=== PATIENT | female | born 1965 | race Hispanic/Latino ===

== ENCOUNTER 2017-09-16 10:00 | Outpatient (CLI) | payer BC | END 2017-09-16 10:01 | disposition home or self-care (01) | LOC: BICRAD 10:00 | PROVIDERS: ATTEND Internal Medicine | DX: R05 Cough (principal); R50.9 Fever, unspecified; R07.0 Pain in throat | CPT/HCPCS: 71020; 87081; 87430 ==

== ENCOUNTER 2018-04-12 04:03 | Inpatient (IN) | payer BC ==
[2018-04-12] MEDS ORDERED: Acetaminophen 500 MG TAB ONE (04:40)
[2018-04-12] MEDS ORDERED: Ondansetron HCl/PF 4 MG/2 ML Vial ONE (04:45)
[2018-04-12] MEDS ORDERED: Piperacillin/Tazobactam 3.375 GM VIAL ONE (04:48)
[2018-04-12 05:32] LABS: CKMB 0.5 ng/mL (0-6.6); Troponin I 0.106 ng/mL (< 0.028)
[2018-04-12 05:36] LABS: ALT (SGPT) 78 U/L (8-55); AST (SGOT) 45 U/L (5-34); Albumin 4.1 g/dL (3.5-5.0); Alkaline Phosphatase 222 U/L (40-150); Anion Gap 17 mmol/L (10-20); BUN (Urea Nitrogen) 20 mg/dL (9.8-20.1); Calc. Creatinine Clearance 0 mL/min (70-130); Calcium 9.4 mg/dL (7.8-10.44); Carbon Dioxide 25 mmol/L (22-29); Chloride 102 mmol/L (98-107); Estimated GFR-MDRD 56; Globulin 2.6 g/dL (2.4-3.5); Glucose 143 mg/dL (70-105); Potassium 3.2 mmol/L (3.5-5.1); Protein, Total 6.7 g/dL (6.0-8.3); Sodium 141 mmol/L (136-145)
[2018-04-12 05:52] LABS: Hemoglobin 13.8 g/dL (12.0-16.0); Mean Corpuscular HGB CONC 31.5 g/dL (32.0-36.0); Mean Corpuscular Hemoglobin 28.8 pg (27.0-31.0); Mean Corpuscular Volume 91.5 fL (78.0-98.0); Mean Platelet Volume 8.8 fL (7.4-10.4); Platelet Count 194 thou/uL (130-400); RBC Distribution Width 13.4 % (11.5-14.5); White Blood Cell (WBC) Count 3.4 thou/uL (4.8-10.8)
[2018-04-12] MEDS ORDERED: Norepinephrine 8 MG/0.9% NS 250 ML ONE (06:18)
[2018-04-12 06:23] LABS: Band 1 % (5-11); Eosinophils 6 % (0-10); Lymphocytes 51 % (21-51); MDiff Complete? YES; Monocytes 14 % (0-10); Neutrophil 28 % (42-75)
[2018-04-12 07:28] LABS: Bilirubin Negative (Negative); Blood, Urine Negative (Negative); Clarity CLEAR (Clear); Glucose, Urine (Dipstick) Negative (Negative); Leukocyte Negative (Negative); Nitrite Negative (Negative); Protein, Urine (Dipstick) Negative (Neg-Trace); Specific Gravity, Urine 1.008 (1.002-1.036); Urobilinogen 0.2 mg/dL (0.2-1.0); pH, Urine 5.5 (5.0-9.0)
--- NOTE | 2018-04-12 07:39 | CT ---
CT BRAIN WITHOUT CONTRAST: Date: 04/12/18 HISTORY: Headache. Mental status change. COMPARISON: None. FINDINGS: No acute hemorrhage or infarct. No midline shift or mass effect. Ventricular size and extra-axial CSF spaces are normal. Basal ganglia, not definitively acute. Calvarium is intact. Mild mucosal thickening of the ethmoids. Mastoids are clear. IMPRESSION: Subtle hypodensity of the right basal ganglia, not definitively acute. If patient is exhibiting signs and symptoms of acute stroke, MRI may be beneficial. POS: [facility]
--- NOTE | 2018-04-12 08:00 | CT ---
CT CHEST WITH CONTRAST CT ABDOMEN WITH CONTRAST CT PELVIS WITH CONTRAST: Date: 04/12/18 HISTORY: Sepsis. COMPARISON: PET CT from 10/20/16. FINDINGS: Small right paratracheal lymph node measures 5.0 mm, relatively similar. No pericardial effusion. Thyroid appears unremarkable. Aortic contour is nonaneurysmal. There is mild interstitial thickening throughout the lungs, worse in the lung bases. Mild atelectasis in the lung bases. No pneumothorax. No significant effusion. No displaced rib fracture. The sternum and manubrium are intact. Liver is unremarkable. Mild distention of the gallbladder. There is submucosal edema of the ascending colon with mucosal hyperenhancement. There is also mild mu cosal hyperenhancement of the sigmoid colon. Lack of normal haustrations of the descending and sigmoid colon, as well as the distal portion of the transverse colon. The superior mesenteric artery is patent. The inferior mesenteric artery is patent . Aortoiliac contour is nonaneurysmal. No hydronephrosis. Normal renal enhancement. Adrenal glands unremarkable. No adenopathy in the abdomen or pelvis. 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 IMPRESSION: 1. Mild interstitial thickening throughout the lungs suggesting edema. 2. Similar appearance of the mediastinal small lymph nodes. 3. Colitis of nearly the entire colon. There is abnormal submucosal edema throughout the ascending a nd proximal one half of the transverse colon with lack of normal haustration of the distal one half t ransverse as well as descending and sigmoid colons. The distal transverse, as well as descending and sigmoid colon is in the region of the inferior mesenteric artery, although is patent. It is possible that there is a superimposition of hypotension upon colitis if patient is septic. No thrombosis of th e inferior mesenteric artery. 4. Normal appendix. POS: [facility]
[2018-04-12] MEDS ORDERED: Sodium Chloride 0.9% 1,000 ML IV SCH ×3 (09:00→12:30)
[2018-04-12] MEDS ORDERED: Acetaminophen 325 MG TAB PO PRN (09:22)
[2018-04-12 09:40] LABS: Lactic Acid 1.7 mmol/L (0.5-2.2)
--- NOTE | 2018-04-12 09:42 | RAD ---
FRONTAL VIEW CHEST: Comparison: None. Indication: Sepsis/hypoxia. FINDINGS: There is mild elevation of the right hemidiaphragm. Cardiac silhouette is accentuated. No lobar conso lidation, effusions, or pneumothorax. IMPRESSION: No focal consolidation. POS: [facility]
[2018-04-12] MEDS ORDERED: Potassium Chloride 40 MEQ in Premix Bag 1 BAG IVPB SCH (10:00)
[2018-04-12] MEDS ORDERED: DOPamine 400 MG/D5W 250 ML 250 ML ONE (10:26)
[2018-04-12] MEDS: Ondansetron HCl/PF 4 MG/2 ML Vial IVP PRN (10:49)
--- NOTE | 2018-04-12 10:55 | RAD ---
FRONTAL VIEW CHEST: Date: 04/12/18 CLINICAL HISTORY: Central line placement evaluation. FINDINGS: There is a right internal jugulovenous catheter with tip overlying the SVC. Cardiac silhouette and pu lmonary vasculature are prominent. There is a patchy left basilar density indicating pleural fluid wi th adjacent consolidation. Mild bilateral interstitial opacities likely represent edema. There is no discrete pneumothorax. IMPRESSION: 1. Right internal jugulovenous catheter is in place. There is no significant postprocedure pneumotho rax. 2. Findings which likely relate to fluid overload, possibly from CHF. Correlate clinically. 3. Left pleural effusion with adjacent left basilar consolidation. Recommend continued imaging follo w-up. POS: [facility]
[2018-04-12] MEDS ORDERED: DOPamine 400 MG/D5W 250 ML 250 ML IVPB SCH (11:00)
[2018-04-12] MEDS ORDERED: Piperacillin/Tazobactam 3.375 GM in Sodium Chloride 0.9% 100 ML IVPB SCH (12:00)
[2018-04-12] MEDS: Vasopressin 40 UNIT, Admixture Fee 1 EACH in Sodium Chloride 0.9% 100 ML IV SCH ×2 (12:00→23:20)
[2018-04-12] MEDS ORDERED: metroNIDAZOLE 500 MG in Premix Bag 1 BAG IVPB SCH (12:00)
[2018-04-12] MEDS: Norepinephrine 8 MG/0.9% NS 250 ML IVPB SCH ×2 (12:38→19:56)
[2018-04-12] MEDS ORDERED: VANCOMYCIN IVPB PRN (13:06)
[2018-04-12] MEDS: Sodium Chloride 0.9% 1,000 ML IV SCH ×3 (14:03→19:56)
[2018-04-12] MEDS ORDERED: ISOVUE-370 76%-LOCM 1 ML ONE (14:47)
--- NOTE | 2018-04-12 15:40 | HP ---
CHIEF COMPLAINT: Abdominal pain. HISTORY OF PRESENT ILLNESS: This patient is a 53-year-old female with a history of mantle cell lymph lonnie who was previously treated and is on continued suppressive therapy with Imbruvica 4 capsules per day. 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 The patient sta chica that she was in her usual state of good health two days ago; however, yesterday she started exper iencing some generalized fatigue and some generalized abdominal discomfort. States she just did not feel like herself. She denied any fevers or chills. Had some difficulty sleeping. She subsequently tried to sleep and got up about 2:00 in the morning and was not feeling well. She called her daught er and her daughter ultimately brought her to the hospital. She denies having had any diarrhea. She does have a history primarily of some constipation and has used laxatives for that. She has had be e diarrhea since she has been here in the hospital. Emergency Department notes are not placed yet; h owever, the patient was significantly hypotensive in the emergency department, appeared to be septic. She has received 6 liters of fluid, vancomycin and Zosyn. PAST MEDICAL HISTORY: Notable for the lymphoma and suppressive therapy. She also has a history of h ypothyroidism. PAST SURGICAL HISTORY: Patient had some what she describes as cyst removed from her pelvic area. Sh e states that is when her diagnosis of lymphoma was made. FAMILY HISTORY: Mother has diabetes. Father has hypertension. SOCIAL HISTORY: The patient is a nonsmoker, nondrinker, nondrug user. She is . She states h er would be her surrogate decision maker. She is a DNR at her request. REVIEW OF SYSTEMS: Negative except for those things mentioned in the history of present illness, thi s is a 10-system review. PHYSICAL EXAMINATION: VITAL SIGNS: Temperature was 100, BP 92/43, respiratory rate 29, O2 saturation 95%, heart rate 120. Note the patient is currently on 18 mcg of Levophed. GENERAL APPEARANCE: The patient is a bit somnolent, but awake and alert, conversant, and appropriate . HEENT: PERRL. No OP lesions. She has a left medial limbus pterygium. NECK: Supple and symmetric with a right central line in place. HEART: Has regular rate and rhythm. She was tachycardic. No murmurs, gallops or rubs. CHEST: Lungs are clear to auscultation bilaterally with good chest wall expansion interexchange. ABDOMEN: Soft, nontender, nondistended, positive bowel sounds. No masses, no organomegaly. EXTREMITIES: Warm and dry. IMAGING DATA: CT scan of the chest, abdomen, and pelvis reveals some mild interstitial thickening th roughout the lungs suggestive of edema and stable mediastinal small lymph nodes. There is colitis of nearly the entire colon with submucosal edema. There is an abnormal submucosal edema throughout the ascending and proximal one half of the transverse colon with lack of normal lacerations of the dista l one half transverse as well as the descending and sigmoid colon at the distal transverse as well as the ascending and sigmoid colon. This region of the inferior mesenteric artery, although it is eastman nt. The radiologist notes that there is superimposition of hypotension and pancolitis in a patient w ith sepsis. No evidence of thrombus in the inferior mesenteric artery. Normal appendix. CT of the brain shows subtle hypodensity of the right basal ganglia, not definitively acute. Chest x-ray by my read appears normal. LABORATORY DATA: White count is 3.4, hemoglobin 13.8, she has 28 neutrophils, 1% bands. Sodium 141, potassium 3.2, chloride 102, CO2 is 25, BUN 20, creatinine is 1.02, glucose 143, lactic acid 2.5, T 45, ALT 78, alkaline phosphatase 222, troponins 0.106. Urinalysis is negative. IMPRESSION AND PLAN: 1. Sepsis. This appears to be secondary to diffuse colitis. The patient has received 6 liters of f luid and remains on pressors. Titrating the pressors to keep map at a target of 60 or greater. Disc ussed case with Dr. Luciano, Pulmonary Critical Care. 2. Colitis. The patient is on vancomycin and Zosyn. We will add metronidazole. The patient does h ave a history of CMV colitis. We will consult ID given that history to determine if we need to cover with viral or antiviral medications as well. Pending now the patient response may need to get surge ry involved as well. 3. History of lymphoma. Patient is on suppressive medications with Imbruvica. We will hold that fo r the time being. We will consult Dr. Cleaning who follows her locally to determine if that is someth ing that should be continued or held through the midst of this sepsis picture. 4. History of hypothyroidism. We will continue with her usual thyroid medications. 5. Elevated liver enzymes. This is likely secondary to some hypotension of the liver. 6. Immunosuppression. The patient's white count is 3.2. She does not appear to be neutropenic, but is suppressed with the Imbruvica. 7. Elevated troponin. This is likely secondary to demand ischemia from pressors and hypotension. 8. Hypokalemia. We will give IV repletion.
[2018-04-12] MEDS ORDERED: Vancomycin HCl 1 GM in Premix Bag 1 BAG IVPB SCH (17:00)
[2018-04-12] MEDS: Piperacillin/Tazobactam 3.375 GM in Sodium Chloride 0.9% 100 ML IVPB SCH ×2 (17:38→23:07)
[2018-04-12] MEDS: SODIUM CHLORIDE 0.9% IVPB SCH (18:41)
[2018-04-12] MEDS: GANCICLOVIR SODIUM IVPB SCH (18:41)
[2018-04-12] MEDS ORDERED: Ganciclovir Sodium 500 MG/10 ML VIAL IVPB SCH (21:00)
[2018-04-12] MEDS: Famotidine/PF 20 mg/2ml Vial SLOW IVP SCH (21:21)
--- NOTE | 2018-04-12 21:42 | CON ---
DATE OF CONSULTATION: 04/12/2018 REASON FOR CONSULTATION: Lymphoma. HISTORY OF PRESENT ILLNESS: Ms. Cadena is a 53-year-old female with a history of mantle cell lympho ma. She has been on Imbruvica for maintenance since 12/2016. She has been in remission since that t shawanda. She has struggled with cramping and night sweats from the medication, but otherwise has done we ll. She presented to the emergency room early this morning for altered mental status. She had a hea dache. In the emergency room, she was tachycardic and hypertensive. She had a fever of 102.4. She had aggressive volume resuscitation, requiring pressors. She was admitted for septic shock and place d in the ICU. She currently remains on vasopressin, dopamine and Levophed. Patient denies any compl aints. Patient was seen in the ICU, both by Dr. Cleaning and myself. PAST MEDICAL HISTORY: 1. Mantle cell lymphoma in remission since 2016. 2. Hypothyroidism. 3. History of CMV colitis in 10/2016. PAST SURGICAL HISTORY: Ovarian cyst removal. ALLERGIES: No known drug allergies. HOME MEDICATIONS: Synthroid 75 mcg daily. FAMILY HISTORY: Mother had ovarian cancer. SOCIAL HISTORY: , has 3 children, lives with her spouse. No alcohol, tobacco or illicit drug use. REVIEW OF SYSTEMS: Constitutional: Positive for fever, chills, no night sweats. Eyes: No blurred or double vision. ENT: No pain, hoarseness, sore throat, or dysphagia. Cardiovascular: No chest p ain or palpitations. Positive for syncope. Respiratory: Positive for shortness of breath. Gastroi ntestinal: No nausea, vomiting, diarrhea, constipation or abdominal pain. Genitourinary: No dysuri a or hematuria. Musculoskeletal: Positive for joint and back pain. Skin: No rash or pruritus. He matologic: No bruising, bleeding or clotting. Neurologic: Positive for weakness, no headache, numb ness, tingling or seizure activity. Psychiatric: No anxiety or depression. PHYSICAL EXAMINATION: VITAL SIGNS: Temperature is 99.5, heart rate 108, respiratory rate is 25, BP is 86/53. GENERAL: This is a well-developed, well-nourished female in no acute distress. HEENT: Normocephalic, atraumatic. Pupils equal and reactive to light. NECK: Supple. HEART: Regular rate and rhythm. LUNGS: Diminished. ABDOMEN: Soft, nontender, bowel sounds are positive. EXTREMITIES: No clubbing, cyanosis or edema. SKIN: No rash. HEMATOLOGIC: No petechia or purpura. NEUROLOGICAL: Nonfocal. PSYCHIATRIC: The patient is alert and oriented and answers questions appropriately. PERTINENT LABORATORY AND X-RAYS: Current WBCs 3.4, hemoglobin 13.8, hematocrit 43.9, platelet count 194,000, 28% neutrophils, 1% bands, 51% lymphocytes, 14% monocytes. Sodium is 141, potassium 3.2, ch loride 102, CO2 is 25, BUN is 20, creatinine 1.02. Lactic acid is 1.7, calcium 9.4, total bilirubin is 1.0, AST is 45, ALT 78, alkaline phosphatase is 222. Troponin is 0.106, serum total protein is 6. 7, albumin 4.1, globulin 2.6. Urine was negative for bacteria. CT of the upper chest, abdomen, and pelvis showed pulmonary edema and colitis. ASSESSMENT: Mantle cell lymphoma in remission since 2017. DISCUSSION: Patient recently stopped Imbruvica approximately a week or so ago. She has been admitte d for sepsis and requiring large volume repletion and pressors. She will remain a FULL CODE at this time. There is no evidence of recurrence on CT scan. We will follow her hospitalization remotely. Thank you for the consultation.
--- NOTE | 2018-04-12 22:37 | CON ---
DATE OF CONSULTATION: 04/12/2018 REASON FOR CONSULTATION: Sepsis, colitis. HISTORY OF PRESENT ILLNESS: A 53-year-old with a history of mantle cell lymphoma, treated and in remission according to the latest PET scan who I saw in November last year for clinical and radiological findings consistent with CMV colitis with a confirmatory pathology from colon biopsy. At that time, patient had no symptoms and we recommend discontinuation of CMV treatment. Now she presents with acute onset of fatigue, general malaise, abdominal discomfort and came to the hospital and had a temperature elevation of 103.8. She was hypotensive and persisted with hypotension after fluid repletion and was started on vasopressors and admitted to the ICU, has developed diarrhea since admission to the ICU. No headaches, no visual symptoms, no nasal symptoms, sore throat, odynophagia, dysphagia. No more vomiting, no back pain, some abdominal cramps, no genitourinary symptoms except for Richards catheter. No neurological symptoms after the resolution of the confusional state once she had her hypotension treated. PAST MEDICAL HISTORY: Mantle cell lymphoma in remission after chemotherapy, currently on ibrutinib maintenance therapy. The patient had stopped ibrutinib for the past few days. PAST SURGICAL HISTORY: Cyst in the pelvic area and the biopsy, which led to diagnosis of mantle cell lymphoma. FAMILY HISTORY: Type 2 diabetes, hypertension. SOCIAL HISTORY: Never a smoker, . MEDICATION LIST: Tylenol, dopamine, Lovenox, Pepcid, methylprednisolone, metronidazole, Zosyn, and vancomycin. PHYSICAL EXAMINATION: VITAL SIGNS: T-max 100, now 98.9, blood pressure 95/64, pulse 110, respirations 28-30, O2 sat 89%. SKIN: Shows a peripheral IV access. She has a Richards catheter in place. She is awake, a little bit of periorbital edema. HEENT: Ocular movements are conjugate. Sclerae white. Conjunctivae is somewhat pale. Pupils are equal and reactive. Oral cavity moist. No oral cavity lesions. Numerous teeth in place with decent shape. NECK: Supple, no jugular vein distention or carotid bruits. LUNGS: With symmetric clear breath sounds. HEART: S1, S2, regular rate. No S3, S4. ABDOMEN: Soft, not distended or tender. No ascites. No bladder distention. EXTREMITIES: No joint inflammatory activity. No edema. Pulses 1+ in dorsalis pedis. She is able to move extremities, although she is diffusely weak. Awake , oriented, follows commands, good recollection. LABORATORY DATA: White cell count 3.4, hemoglobin 13, MCV 91, platelets 194 with 28% neutrophils, 1% bands, 51% lymphocytes, 14% monocytes. Sodium 141, potassium 3.2, creatinine 1.02, glucose 143. Lactic acid 2.5 and 1.7, AST 45, ALT 78, alkaline phosphatase 222, albumin 4.1. Urinalysis was normal. Microbiology with Clostridium difficile antigen and toxin negative. IMAGING STUDIES: We have CT abdomen and pelvis with mild interstitial thickening through the lungs. Mediastinal lymph nodes, small colitis with submucosal edema. ASSESSMENT: Mantle cell lymphoma, prior history of CMV colitis and sepsis with recrudescence of colitis. DISCUSSION: Differential diagnosis includes recrudescence of CMV colitis, another form of colitis secondary to a bacterial pathogen. C. difficile has been effectively ruled out. We will discontinue Flagyl. We will add ganciclovir to treatment regimen. Submit CMV DNA PCR, histoplasma antigen and cryptococcus antigen. Ibrutinib is associated with an enhanced risk of opportunistic infections, about 50% of them are bacterial infections. The remainder include invasive fungal infections and pneumocystis. MTDD
--- NOTE | 2018-04-12 22:43 | CON ---
PULMONARY CONSULTATION CRITICAL CARE NOTE DATE OF CONSULTATION: 04/12/2018 HISTORY OF PRESENT ILLNESS: Ms. Cadena is a woman who has a mantle-cell lymphoma per my discussion with Dr. Cleaning is in remission. She presented with a day of vague abdominal discomfort mixed with diarrhea. She has become hypotensi ve and subsequently has been admitted. Chest, abdomen, and pelvis CT shows pancolitis. She is on immunosuppressive therapy for lymphoma. PAST MEDICAL HISTORY: Remarkable for; 1. Hypothyroidism. 2. Status post pelvic biopsy, giving her the diagnosis of lymphoma. FAMILY HISTORY: Positive for hypertension and diabetes. SOCIAL HISTORY: She is a nonsmoker, nondrinker. It is reported that she was a DNR, but I had a discussion about code status and she relayed a poor un derstanding of what this meant. I have explained to her that what she has is potentially reversible and I feel at her young age (53), we should be aggressive, she agreed to this approach. I have also informed her that if things became hopeless, would certainly let her know. REVIEW OF SYSTEMS: Otherwise negative. She denies having any bright red blood per rectum. She has not been hospitalized here in the past. Ten-point review of systems otherwise negative. PHYSICAL EXAMINATION: VITAL SIGNS: Blood pressure is variable between 70s and 80s, heart rate 108, respiratory rates in th e 20s. HEENT: Pupils are equal. Sclerae are anicteric. NECK: Supple. LUNGS: Clear. HEART: Regular rhythm. ABDOMEN: Minimally tender but slightly distended. EXTREMITIES: Without clubbing, cyanosis, or edema. NEUROLOGIC: Grossly nonfocal. IMPRESSION: Pancolitis, most likely associated with immunotherapy less likely ischemic. She does no t have an exam suggestive of ischemic colitis and given that her entire colon was inflamed, it is unl ikely to be ischemic. Gastroenterology has been consulted for their input. She may have some mild interstitial changes as well, but she is in absolutely no respiratory distress . I have seen immunotherapy mediated interstitial pneumonitis as well. We will start her on steroid s. She is on empiric antimicrobial therapy. We will be happy to follow with the physicians caring f or the code status has been reversed. Critical care time was 30 minutes.
--- NOTE | 2018-04-12 22:45 | HP ---
HISTORY OF PRESENT ILLNESS: This is a 53-year-old female with history of mantle cell lymphoma. Foll ow up with Dr. Cleaning obtaining every 6 months CAT scans at the [facility], presents not feel ing well yesterday at work. 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 She denies hav ing any abdominal pain. She was confused, lethargic, presented to the emergency room, found to be hy potensive with a white count of 3.4, had a basic metabolic profile essentially unremarkable. S he had a CAT scan of the abdomen and pelvis revealing a thickened colon throughout the cecum to the s igmoid. She is unchanged mediastinal small lymph nodes. She was felt to have colitis of the entire colon. She denied any abdominal pain. Since being admitted, she has been having diarrhea. When brent santiago consulted to see her, I have ordered a stool for C. diff. She gives a history of having a CMV colitis treated last year. She was hypotensive most the morning, but is normotensive now and in the ICU being monitored. ALLERGIES: None. TOBACCO: None. ALCOHOL: None. MEDICATIONS: Levothyroxine replacement at home. PAST SURGICAL HISTORY: Lymph node biopsy. PAST MEDICAL HISTORY: History of CMV colitis, history of mantle cell lymphoma, followed Dr. Cleaning with a CAT scan of the abdomen and pelvis [facility] a few months ago that was unremarkable. Had chronic mediastinal nodes seen, small. No evidence of recurrence of mantle cell lymphoma. REVIEW OF SYSTEMS: Ten point noncontributory noted that the patient had a colonoscopy in 10/[address] Smith. FAMILY HISTORY: Noncontributory. PHYSICAL EXAMINATION: VITAL SIGNS: 4 feet 11, 127 pounds, 119/98 over 49, and respiratory rate 23. GENERAL: Patient is in no distress. She is calm looking. She is coherent, alert and oriented x3. HEENT: Unremarkable. No lymphadenopathy noted. LUNGS: Clear to auscultation, no wheezing. CARDIAC: Regular rate and rhythm. ABDOMEN: Soft, nontender, nondistended. EXTREMITIES: No edema. LABORATORIES: As noted above. ASSESSMENT AND PLAN: Hypertension, new onset of diarrhea without abdominal pain on admission, but on ly mental status changes. At this point, we would await stool studies. We would recommend GI consul t, which I have already submitted. We will await stool studies. Initially submitted for C. diff, prema jackson she has not been on antibiotics recently. We will await Gastroenterology input. Currently, there is no indication for surgical intervention.
[2018-04-13] MEDS: Norepinephrine 8 MG/0.9% NS 250 ML IVPB SCH ×2 (00:21→19:50)
[2018-04-13] MEDS: Sodium Chloride 0.9% 1,000 ML IV SCH ×3 (01:09→16:06)
--- NOTE | 2018-04-13 03:12 | CON ---
DATE OF CONSULTATION: 04/12/2018 CHIEF COMPLAINT: Nausea and vomiting, diarrhea, and weakness. HISTORY OF PRESENT ILLNESS: Ms. Cadena is a 53-year-old woman who has been undergoing treatment for mantle cell lymphoma. She woke up around 4 this morning and states that she knew where she was, but could not put words together and felt very weak. She reports fever and nausea and vomiting that sta rted last night. She has had no abdominal pain with this. She came to the emergency room and was fo und to be hypotensive and received IV fluids and was admitted to the Intensive Care Unit for suspecte d sepsis. She has had blood cultures obtained and has been started on broad spectrum antimicrobials. On 10/2016, she had lower abdominal pain and CT scan showing thickening of the right colon. She un derwent colonoscopy by Dr. Smith and on 10/30/2016, which showed right-sided colitis. Biopsies confir m CMV colitis. Ischemic changes were not noted by the biopsies. She was treated with valganciclovi r from what I can tell. She had a CT scan when she came to the emergency room today, which again mame ws thickening more in the transverse colon and sigmoid and descending. She had no diarrhea prior to admission, but she did have 5 or 6 episodes of diarrhea since admission this morning. No blood in th e stool. PAST MEDICAL HISTORY: Mantle cell lymphoma, CMV colitis, hypothyroidism. PAST SURGICAL HISTORY: Tubal ligation and colonoscopy. FAMILY HISTORY: Negative for GI malignancy. SOCIAL HISTORY: No alcohol, tobacco or drugs. ALLERGIES: No known drug allergies. MEDICATIONS: Prior to admission, levothyroxine. She has been on suppressive therapy for the mantle cell lymphoma as well. CURRENT INPATIENT MEDICATIONS: Include dopamine, enoxaparin, famotidine, ganciclovir, methylpredniso lone, Levophed, Zosyn, vancomycin. REVIEW OF SYSTEMS: Negative x10 systems reviewed except as stated in history of present illness. PHYSICAL EXAMINATION: VITAL SIGNS: Temperature 99.0, pulse 101, oxygen saturation 92%, blood pressure 121/72. GENERAL: She is in no acute distress. Currently, she is alert and oriented x3. HEENT: Eyes have no scleral icterus. Oropharynx is clear, without lesions. NECK: No cervical or supraclavicular lymphadenopathy. LUNGS: Clear to auscultation bilaterally. HEART: Regular rate and rhythm. ABDOMEN: Soft, minimally distended. Bowel sounds are present. EXTREMITIES: No lower extremity edema. NEUROLOGIC: Cranial nerves are grossly intact. LABS: Creatinine 1.02, bilirubin 1.0, AST 45, ALT 78, alkaline phosphatase 222, albumin 4.1. White blood cell count 3.4, hemoglobin 13.8, platelets 194% neutrophils 28%. IMPRESSION: 1. Recurrent cytomegalovirus colitis. She has a chronic immune suppression related to her mantle ce ll lymphoma and treatment. She had similar presentation when she had CMV colitis in 10/2009. At rajinder t time, again she had right-sided colon thickening and no diarrhea, but she did have some lower abdom inal pain. It is possible that she has other source for the colitis now. The CT shows thickening of the transverse and sigmoid and descending colon. Ischemic colitis again is a consideration. She wa s negative for C. diff by stool samples. We will send additional stool studies for culture and ova a nd parasite. Again, the most likely scenario is that she has recurrent CMV colitis. RECOMMENDATIONS: Ganciclovir IV. When she is tolerating oral diet well and clinically improved, then she could transi tion to oral valganciclovir. If she fails to respond appropriately to treatment, then colonoscopy ca n be performed repeated to confirm the diagnosis or evaluate for other source.
[2018-04-13 04:40] LABS: Anion Gap 12 mmol/L (10-20); BUN (Urea Nitrogen) 14 mg/dL (9.8-20.1); Calc. Creatinine Clearance 75 mL/min (70-130); Calcium 7.5 mg/dL (7.8-10.44); Carbon Dioxide 16 mmol/L (22-29); Chloride 116 mmol/L (98-107); Estimated GFR-MDRD 77; Glucose 286 mg/dL (70-105); Sodium 140 mmol/L (136-145)
[2018-04-13 05:00] LABS: Band 12 % (5-11); Hemoglobin 11.1 g/dL (12.0-16.0); Lymphocytes 30 % (21-51); MDiff Complete? YES; Mean Corpuscular HGB CONC 31.4 g/dL (32.0-36.0); Mean Corpuscular Hemoglobin 29.9 pg (27.0-31.0); Mean Corpuscular Volume 95.4 fL (78.0-98.0); Mean Platelet Volume 8.9 fL (7.4-10.4); Metamyelocyte 1 % (0-0); Monocytes 4 % (0-10); Neutrophil 52 % (42-75); Platelet Count 162 thou/uL (130-400); RBC Distribution Width 13.5 % (11.5-14.5); Reactive Lymphocytes 1 % (0-10); Red Blood Cell (RBC) Count 3.69 mill/uL (4.20-5.40); White Blood Cell (WBC) Count 5.7 thou/uL (4.8-10.8)
[2018-04-13] MEDS: Vancomycin HCl 1 GM in Premix Bag 1 BAG IVPB SCH (05:14)
[2018-04-13] MEDS: Piperacillin/Tazobactam 3.375 GM in Sodium Chloride 0.9% 100 ML IVPB SCH ×3 (05:15→18:20)
[2018-04-13] MEDS: GANCICLOVIR SODIUM IVPB SCH ×2 (05:15→18:48)
[2018-04-13] MEDS: SODIUM CHLORIDE 0.9% IVPB SCH ×2 (05:15→18:48)
[2018-04-13] MEDS: Ondansetron HCl/PF 4 MG/2 ML Vial IVP PRN (09:12)
[2018-04-13] MEDS: Famotidine/PF 20 mg/2ml Vial SLOW IVP SCH ×2 (09:25→19:49)
[2018-04-13] MEDS: Enoxaparin Sodium 40 MG/0.4 ML SYRINGE SC SCH (09:26)
[2018-04-13] MEDS ORDERED: Pantoprazole 40 MG VIAL IVP SCH (11:00)
[2018-04-13] MEDS: Calcium Carbonate 500 MG ChewTAB PO PRN ×2 (11:34→20:58)
--- NOTE | 2018-04-13 13:19 | PRG ---
DATE OF SERVICE: 04/13/2018 SUBJECTIVE: Ms. Cadena remains in the ICU. Her Levophed was weaned off and she remains on vasopres sin. Her diarrhea seems to have slowed down. There is no rectal bleeding. She does complain of be e ongoing nausea and early satiety with her clear liquid diet. OBJECTIVE: VITAL SIGNS: Temperature 98.5, pulse 87, blood pressure 91/75, 93% oxygen saturation on room air. GENERAL: No acute distress. HEART: Regular rate and rhythm. LUNGS: Clear to auscultation bilaterally. ABDOMEN: Bowel sounds present, soft, some generalized tenderness to palpation, but no guarding or re bound tenderness. EXTREMITIES: No peripheral edema. LABORATORY STUDIES: WBC 5.7, hemoglobin 11.1, platelets 162. Sodium 140, potassium 4.0, BUN 14, cre atinine 0.78, glucose 286, calcium 7.5. Urinalysis negative. Cryptococcal antigen negative. Blood and urine culture showing no growth at 24 hours. Stool assays for C. difficile, Campylobacter and Sh iga toxin and rapid parasite screen are negative. Stool lactoferrin is elevated. Serum CMV DNA PCR is pending. ASSESSMENT AND PLAN: 1. Cytomegalovirus colitis, recurrent. 2. Sepsis. I agree that the patient's clinical presentation and imaging findings all appear consist ent with recurrent Cytomegalovirus colitis. She had an episode of this in 10/2016, treated with valg anciclovir at that time. I agree with the current treatment with IV ganciclovir. Follow up CMV DNA PCR result. We will not plan for any repeat colonoscopy at this time. Continue with clear liquid diet for now. Consider advancing diet as tolerated tomorrow if she is fee ling better. Please call any time with questions or concerns.
--- NOTE | 2018-04-13 13:50 | PRG ---
DATE OF SERVICE: 04/13/2018 Ms. Cadena is in ICU still. She feels a little bit better, although had some problems with eating a nd swallowing. She has some upper abdominal discomfort. OBJECTIVE: VITAL SIGNS: Blood pressure 100/62, 89 heart rate, 24 respiratory rate. LABORATORY: This morning her white count is 5.7, hemoglobin 11.1. Basic metabolic profile essential ly unremarkable, although CO2 is slightly low at 16. LUNGS: Clear. ABDOMEN: Soft. Mild tenderness, but no rebound or peritoneal signs or guarding. Occasional bowel s ounds. Clostridium difficile studies are negative. Other stool studies have been ordered. Culture; enteric ganga, Campylobacter, Shigella test negative. Lactoferrin elevated. Parasite screen negative for G iardia, cryptosporidium, negative for Cryptococcus antigen. ASSESSMENT AND PLAN: Colitis, diarrhea yesterday, apparently has resolved. At this point, I do not think there is anything surgical to offer. Please call if I need to see her again. I will sign off at this time.
--- NOTE | 2018-04-13 14:06 | RAD ---
UPRIGHT PORTABLE CHEST ONE VIEW: HISTORY: A 53-year-old female with a history of chest pain and shortness of breath. COMPARISON: 04/12/2018 FINDINGS: Monitor leads overly the chest. Right jugular venous catheter in place. Progressive bilateral inter stitial and alveolar opacities and bilateral pleural effusions since the prior 04/12/2018 study. Wor sening retrocardiac opacification. IMPRESSION: Evidence for worsening bilateral pulmonary edema and pleural effusions, certainly concerning for bob estive heart failure and pulmonary edema. Continue short-term followup for clearing or stability. POS: [facility]
--- NOTE | 2018-04-13 14:53 | PDOC.PN ---
- Subjective Encounter Start Date: 04/13/18 Encounter Start Time: 14:42 Has had some discomfort in the chest today. Has a full sensation in the chest and throat when attempting to swallow. Feels better when sitting up and forward. Hurts to take a deep breath. Still has minimal abdominal pain. Has had some diarrhea. - Objective Resuscitation Status: Resuscitation Status FULL:Full Resuscitation Vital Signs & Weight: Vital Signs (12 hours) Temp Pulse Resp Pulse Ox 04/13/18 11:00 98.5 F 04/13/18 08:00 97.8 F 04/13/18 07:48 97.8 F 80 25 H 93 L 04/13/18 03:00 98.9 F Weight Admit Weight 127 lb 10.362 oz Weight 130 lb 11.746 oz Most Recent Monitor Data Heart Rate from ECG 88 NIBP 120/72 NIBP BP-Mean 91 Respiration from ECG 31 SpO2 92 I&O: 04/12/18 04/13/18 04/14/18 06:59 06:59 06:59 Intake Total 6401.4 600 Output Total 3650 1175 Balance 2751.4 -575 Result Diagrams: 04/13/18 04:20 04/13/18 04:20 Phys Exam - Physical Examination Tachypneic. Neck: no JVD Shallow, quick resps with diminished BS at bases. Cardiovascular: RRR Very faint heart sounds. Gastrointestinal: soft, non-tender, positive bowel sounds Musculoskeletal: no edema Dx/Plan (1) Tachypnea Code(s): R06.82 - TACHYPNEA, NOT ELSEWHERE CLASSIFIED Status: Acute Plan: Had decreased electrical potentials on EKG. Had stat echo with pleural effusion anterior to the heart. No pericardial effusion. No evidence of tamponade. CXR with pulmonary edema and effusion. Discussed with Dr. Luciano. Can't diurese given that her pressures are still labile and she is still on pressors. Suspect this is accounting for the chest discomfort symptoms. Discussed with nursing. Positioning in best possible position. If progresses, would need to consider US guided tap. Decreasing fluids. (2) CMV colitis Code(s): A08.39 - OTHER VIRAL ENTERITIS; B25.9 - CYTOMEGALOVIRAL DISEASE, UNSPECIFIED Status: Acute Comment: Gancyclovir, Zosyn. ID, GI following. (3) Sepsis Code(s): A41.9 - SEPSIS, UNSPECIFIED ORGANISM Status: Acute Comment: Still on pressors. Much improved overall. (4) Hypotension Status: Acute (5) History of Hodgkin's lymphoma Code(s): Z85.71 - PERSONAL HISTORY OF HODGKIN LYMPHOMA Status: Acute Comment : Juneuvica held. (6) Chest pain Code(s): R07.9 - CHEST PAIN, UNSPECIFIED Status: Acute Comment: Not ischemic. Concerning for possible esophagitis (CMV, other viral, candidal). May be related to the pulmonary edema or effusion. Does not appear to be secondary to the colitis. - Plan * Continue abx, pressors. * Time spent in critical care 67 minutes.
--- NOTE | 2018-04-13 15:43 | EKG ---
Test Reason : Blood Pressure : / mmHG Vent. Rate : 085 BPM Atrial Rate : 085 BPM P-R Int : 144 ms QRS Dur : 078 ms QT Int : 378 ms P-R-T Axes : 059 018 014 degrees QTc Int : 449 ms Normal sinus rhythm Low voltage QRS Nonspecific ST and T wave abnormality Abnormal ECG When compared with ECG of 12-APR-2018 04:38, (Unconfirmed) Vent. rate has decreased BY 63 BPM Nonspecific T wave abnormality now evident in Anterior leads Confirmed by JAVIER GUTIERREZ, DR. Urena ([id number]) on 04/13/2018 3:43:12 PM Referred By: EJ Confirmed By:DR. Ayanna HERRERA MD
[2018-04-13] MEDS: Sodium Chloride 0.45% 1,000 ML IV SCH (16:00)
--- NOTE | 2018-04-13 16:02 | PRG ---
DATE OF SERVICE: 04/13/2018 SUBJECTIVE: Tammi says she feels much better. She has had some chest discomfort this afternoon. Echocardiogram is being done currently, but does not suggest that she has tamponade. She is on waxing and waning doses of pressors at this point. OBJECTIVE: VITAL SIGNS: Current blood pressure 120/72, heart rate 88, respiratory rates in the 20s. LUNGS: Clear anteriorly and laterally. CARDIOVASCULAR: Regular rhythm. ABDOMEN: Soft and only minimally tender. EXTREMITIES: Without asymmetry. LABORATORY DATA: White count 5.7, hemoglobin 11.1, platelets 162,000. Sodium 140, potassium 4, chloride 116, bicarbonate 16, BUN 14, creatinine 0.78. Her anion gap is 8. IMPRESSION: 1. Colitis related to her immunosuppression. Exact etiology of her colitis is unclear at this point. 2. Intravascular volume depletion and clinical picture suggestive of sepsis. All cultures are negative so far. I doubt this is adrenal crisis. 3. Mild hyperchloremic acidosis, which may be contributing to her mild tachypnea, switched to half normal saline. 4. Interstitial changes on radiograph. This could be infectious. I would not recommend bronchoscopy with biopsies at this point. This also could be inflammatory reaction in theory associated with her immunotherapy. It also could be in part secondary to volume resuscitation, although she had an increase interstitial markings on chest radiograph on presentation. 5. Colitis. At some point, she will need colon biopsies. Would not recommend procedure at this point in time given her hemodynamic instability. She would have to be done with airway protection, i.e., intubation. 6. History of mantle cell lymphoma in remission. I doubt her lymphoma has recurred in her bowel that this is still in the differential. Will continue following other physicians caring for her. Critical care time: 35 MTDD
[2018-04-13] MEDS ORDERED: Metoclopramide HCl 10 MG/2 ML VIAL IVP SCH (18:30)
[2018-04-13] MEDS: Vasopressin 40 UNIT, Admixture Fee 1 EACH in Sodium Chloride 0.9% 100 ML IV SCH (18:40)
--- NOTE | 2018-04-13 19:15 | PRG ---
DATE OF SERVICE: 04/13/2018 SUBJECTIVE: Still in the ICU, but she is awake, feels a little better except for the sensation of f ullness in the epigastric area, lower chest. She has noticed this for the past 12 hours and usually is exacerbated by trying to swallow something. She denies any odynophagia or dysphagia. No chest pa in, no dyspnea, no abdominal pain, no diarrhea anymore. PHYSICAL EXAMINATION: VITAL SIGNS: T-max 98.5, blood pressure 120/60, pulse 82, respirations 26, O2 sat 91%. SKIN: Not remarkable. HEENT: Ocular movements conjugate. Oral cavity moist. NECK: Supple. LUNGS: With symmetric air entry. HEART: S1, S2, regular rate. ABDOMEN: Soft, not distended or tender. No ascites. No bladder distention. EXTREMITIES: Moves all extremities equally. LABORATORY: White cell count 5.7, hemoglobin 11, platelets 162, 52% neutrophils, 12% bands. Sodium 140, creatinine 0.78, AST 45, ALT 78, albumin 4.1. Urinalysis was normal. Microbiology with negativ e cryptococcus antigen and stool lactoferrin was normal. C. diff antigen and toxin screen were negat dustin. Campylobacter and Shiga toxin tests were negative. Other assays are pending. She had an echoc ardiogram, which showed EF 55%. Other findings not remarkable except for large pleural effusion. ASSESSMENT AND DISCUSSION: Mantle cell lymphoma with history of CMV colitis, sepsis recrudescence of colitis. The patient now has this area of fullness in the epigastric region, which could be related to gastritis or motility disorder. She had a CT of chest, abdomen, and pelvis that showed mild dist ention of the gallbladder, but no other findings that would relate to this new sensation that she has experienced. It may be related to the fluid around her chest. Continue the broad spectrum coverage and wait for the other assay results.
[2018-04-13] MEDS ORDERED: Lorazepam 1 MG TAB PO SCH (20:45)
[2018-04-14] MEDS: Piperacillin/Tazobactam 3.375 GM in Sodium Chloride 0.9% 100 ML IVPB SCH ×5 (00:15→23:33)
[2018-04-14] MEDS: Sodium Chloride 0.45% 1,000 ML IV SCH ×2 (02:06→11:37)
[2018-04-14 04:32] LABS: Vancomycin, Trough 4.1 ug/mL
[2018-04-14 04:33] LABS: Anion Gap 11 mmol/L (10-20); BUN (Urea Nitrogen) 16 mg/dL (9.8-20.1); Calc. Creatinine Clearance 90 mL/min (70-130); Calcium 8.6 mg/dL (7.8-10.44); Carbon Dioxide 20 mmol/L (22-29); Chloride 111 mmol/L (98-107); Estimated GFR-MDRD Greater than 90; Glucose 177 mg/dL (70-105); Potassium 3.6 mmol/L (3.5-5.1); Sodium 138 mmol/L (136-145)
[2018-04-14] MEDS: Vancomycin HCl 1 GM in Premix Bag 1 BAG IVPB SCH ×2 (04:56→16:36)
[2018-04-14 05:00] LABS: Band 5 % (5-11); Hemoglobin 10.4 g/dL (12.0-16.0); Hypochromia SLIGHT = 6-15 cells (100X) (0-5/hpf); Lymphocytes 18 % (21-51); MDiff Complete? YES; Mean Corpuscular HGB CONC 32.4 g/dL (32.0-36.0); Mean Corpuscular Hemoglobin 30.4 pg (27.0-31.0); Mean Corpuscular Volume 93.7 fL (78.0-98.0); Mean Platelet Volume 8.8 fL (7.4-10.4); Monocytes 11 % (0-10); Neutrophil 66 % (42-75); Nucleated RBC 1 % (0); PLT Morphology Comment Appears Adequate; Platelet Count 137 thou/uL (130-400); RBC Distribution Width 13.5 % (11.5-14.5); Red Blood Cell (RBC) Count 3.43 mill/uL (4.20-5.40)
[2018-04-14] MEDS: GANCICLOVIR SODIUM IVPB SCH ×2 (05:43→18:55)
[2018-04-14] MEDS: SODIUM CHLORIDE 0.9% IVPB SCH ×2 (05:43→18:55)
--- NOTE | 2018-04-14 07:46 | RAD ---
CHEST 1 VIEW: HISTORY: Central line placement. COMPARISON: Chest radiograph same day. FINDINGS: There has been interval removal of the right IJ central venous catheter. New left IJ central venous catheter is in place. Heart size is enlarged. Layering effusions. Moderate volume overload. IMPRESSION: Interval placement of left internal jugular central venous catheter without complication. The tip pr ojects over the mid SVC. POS: [facility]
[2018-04-14] MEDS: Enoxaparin Sodium 40 MG/0.4 ML SYRINGE SC SCH (09:05)
[2018-04-14] MEDS: Pantoprazole 40 MG VIAL IVP SCH (09:05)
--- NOTE | 2018-04-14 09:32 | OP-2 ---
DATE OF PROCEDURE: 04/14/2018 PROCEDURE: Triple lumen left internal jugular central line placement under ultrasound guidance. SURGEON: Dr. Kj Andrew, Dr. Leonardo Rushing SUPERVISING SURGEON: Dr. Nirmal Elam. INDICATION: IV access and need for pressors. EBL: 15 mL PROCEDURE: Informed consent was obtained from the patient. The left neck and shoulder were prepped in the usual fashion. The left internal jugular vein was identified with US and verified with compression and color flow doppler. The skin was anesthetized with 3mL of 1% lidocaine without epinephrine. The left IJ was cannulated with the introducer needle under direct visualization. The guidewire was easily passed through the needle to the 30 cm leonardo. The needle was removed and a skin christelle was made with the scalpel. A soft tissue dilator was placed over the guidewire and the soft tissue was extended. A 7 tamazight triple lumen catheter was then placed over the guidewire and inserted to the 15 cm leonardo. All three ports were then aspirated and flushed with sterile saline. The line was then secured with nylon suture and central line dressing with antimicrobial gel patch. A post procedural chest x-ray showed the tip of the catheter in the superior vena cave. No pneumothorax was identified. Patient tolerated the procedure well. Dr. Elam was present for the entire procedure. AGA
[2018-04-14] MEDS: Famotidine/PF 20 mg/2ml Vial SLOW IVP SCH ×2 (10:08→21:15)
--- NOTE | 2018-04-14 16:54 | PRG ---
DATE OF SERVICE: 04/14/2018 SUBJECTIVE: The patient is diuresing better today. She was taken off the vasopressors, little bit c onfused overnight, pulled her central line and that had to be replaced. OBJECTIVE: VITAL SIGNS: T-max 98.4. Other vital signs are normal, slightly tachycardic. O2 sats 95%. Periorb ital edema and ecchymosis is less. HEENT: Ocular movements conjugate. LUNGS: With symmetric air entry, faint basilar crackles. HEART: S1, S2, regular rate. ABDOMEN: Soft. Moves extremities equally. LABORATORY DATA: White cell count 6.0, hemoglobin 10.4, platelets 137. Creatinine 0.67, AST 45, ALT 78, alkaline phosphatase 222, albumin 4.1. No new microbiology inflow available. Chest x-ray: Car diomegaly and replacement of the central line. Echocardiogram, EF 55%. ASSESSMENT AND DISCUSSION: Mantle cell lymphoma, prior history of cytomegalovirus colitis and sepsis , which led to admission, recrudescence of colitis. The sensation of fullness in the epigastric ches t area probably related to volume overload, pleural effusions and seems to be getting better. Still the main concern is within the opportunistic infectious process and are waiting on the assays t hat remain to be completed. Continue the regimen prescribed.
--- NOTE | 2018-04-14 17:42 | PRG ---
DATE OF SERVICE: 04/14/2018 GI INPATIENT PROGRESS NOTE SUBJECTIVE: Ms. Cadnea had some issues with delirium last night. She is more hemodynamically stabl e. The vasopressin was able to be weaned off this morning. Per nursing staff, she has not been comp laining of any abdominal pain today. She is finally getting some sleep this afternoon. She has had 2 watery bowel movements today, small volume though. No overt bleeding. Oral intake has remained mi nimal. Urine output is picking up. OBJECTIVE: VITAL SIGNS: Temperature 98.4, pulse 85, blood pressure 108/76, 95% oxygen saturation on 2 liters na elsa cannula. GENERAL: Resting comfortably, in no acute distress. HEART: Regular rate and rhythm. LUNGS: Clear to auscultation bilaterally. ABDOMEN: Bowel sounds present, soft, nontender to palpation. EXTREMITIES: 1+ bilateral lower extremity edema. LABORATORY STUDIES: Hemoglobin 10.4, WBC 6.0, platelets 137. Sodium 138, potassium 3.6, BUN 16, cre atinine 0.67, glucose 177, calcium 8.6. Urine and blood cultures showing no growth at 48 hours. Sto ol C. difficile is negative. Stool lactoferrin is elevated. Stool culture is unremarkable. Rapid p arasite screen negative. Cryptococcal antigen negative. CMV DNA PCR is still pending. ASSESSMENT AND PLAN: 1. Cytomegalovirus colitis, recurrent. 2. Sepsis, improving. I would recommend continuing antiviral therapy with ganciclovir. I appreciate assistance of other se rvices including Critical Care and Infectious Disease. It appears the patient is clinically improvin g. We are not planning for repeat colonoscopy at this time, unless the patient fails to have further symptomatic improvement. We will try to advance diet to a full liquid diet today and see how she do es.
--- NOTE | 2018-04-14 19:22 | PRG ---
DATE OF SERVICE: 04/14/2018 Ms. Cadena apparently pulled out her IV overnight and had a central line placed by the Residency [facility] vice last night. She is off pressors now. PHYSICAL EXAMINATION: VITAL SIGNS: Blood pressure 115/65, heart rate is 96, respiratory rate is in the 20s. LUNGS: Remarkable for decreased breath sounds at her bases. HEART: Regular rhythm. ABDOMEN: Soft. EXTREMITIES: Without asymmetry. LABORATORY DATA: White count 6.0, hemoglobin 10.4, platelets 137,000. Sodium 138, potassium 3.6, ch loride 111, bicarbonate 20, BUN 16, creatinine 0.67. IMPRESSION: 1. Colitis, clinically stable. 2. Pleural effusion secondary to volume resuscitation. Now, she is off pressors. Tomorrow, we might be able to consider diuresis. Her fluids have been cut back to keep vein open. Her echocardiogram did not show any structural abnormalities. We will continue to follow if she remains in Critical Care Unit for now.
--- NOTE | 2018-04-14 22:26 | PDOC.PN ---
- Subjective Encounter Start Date: 04/14/18 Encounter Start Time: 13:30 Has had some confusion overnight. Pulled out her central line. Feels like she is a little better. Still has the pressure sensation in the chest. - Objective Resuscitation Status: Resuscitation Status FULL:Full Resuscitation Vital Signs & Weight: Vital Signs (12 hours) Temp 04/14/18 19:00 99.0 F 04/14/18 16:00 98.3 F 04/14/18 12:00 98.4 F Weight Admit Weight 127 lb 10.362 oz Weight 129 lb 6.581 oz Most Recent Monitor Data Heart Rate from ECG 89 NIBP 119/71 NIBP BP-Mean 89 Respiration from ECG 18 SpO2 93 I&O: 04/13/18 04/14/18 04/15/18 06:59 06:59 06:59 Intake Total 6401.4 4818 1535 Output Total 3650 2570 4750 Balance 2751.4 3596 -4044 Result Diagrams: 04/14/18 04:16 04/14/18 04:16 Additional Labs: Accuchecks 04/14/18 18:26 POC Glucose 134 H Phys Exam - Physical Examination Constitutional: NAD HEENT: oral pharynx no lesions Neck: no JVD, supple Respiratory: no wheezing Scattered rales. Decreased at bases. Cardiovascular: RRR, no significant murmur Gastrointestinal: soft, non-tender, no distention Mild general edema Psychiatric: normal affect Dx/Plan (1) Tachypnea Code(s): R06.82 - TACHYPNEA, NOT ELSEWHERE CLASSIFIED Status: Acute (2) CMV colitis Code(s): A08.39 - OTHER VIRAL ENTERITIS; B25.9 - CYTOMEGALOVIRAL DISEASE, UNSPECIFIED Status: Acute Comment: Gancyclovir, Zosyn. ID, GI following. (3) Sepsis Code(s): A41.9 - SEPSIS, UNSPECIFIED ORGANISM Status: Acute Comment: Still on pressors. Much improved overall. (4) Hypotension Status: Resolved Comment: Off pressors (5) History of Hodgkin's lymphoma Code(s): Z85.71 - PERSONAL HISTORY OF HODGKIN LYMPHOMA Status: Acute Comment : Embruvica held. (6) Chest pain Code(s): R07.9 - CHEST PAIN, UNSPECIFIED Status: Acute Comment: Not ischemic. Concerning for possible esophagitis (CMV, other viral, candidal). May be related to the pulmonary edema or effusion. Does not appear to be secondary to the colitis. - Plan * Off pressors. * Now volume overloaded. Will likely need diuresis as soon as that is possible. * Continue antivirals and antibiotics. * Pain management.
[2018-04-15] MEDS: Vancomycin HCl 1 GM in Premix Bag 1 BAG IVPB SCH (04:16)
[2018-04-15 04:36] LABS: Anion Gap 9 mmol/L (10-20); BUN (Urea Nitrogen) 14 mg/dL (9.8-20.1); Calc. Creatinine Clearance 95 mL/min (70-130); Calcium 8.7 mg/dL (7.8-10.44); Carbon Dioxide 30 mmol/L (22-29); Chloride 111 mmol/L (98-107); Estimated GFR-MDRD Greater than 90; Glucose 186 mg/dL (70-105); Sodium 147 mmol/L (136-145)
[2018-04-15 04:38] LABS: Band 1 % (5-11); Hemoglobin 9.1 g/dL (12.0-16.0); Lymphocytes 30 % (21-51); MDiff Complete? YES; Mean Corpuscular HGB CONC 33.7 g/dL (32.0-36.0); Mean Corpuscular Hemoglobin 30.8 pg (27.0-31.0); Mean Corpuscular Volume 91.4 fL (78.0-98.0); Mean Platelet Volume 8.6 fL (7.4-10.4); Monocytes 4 % (0-10); Neutrophil 65 % (42-75); Nucleated RBC 1 % (0); PLT Morphology Comment Appears Decreased; Platelet Count 116 thou/uL (130-400); RBC Distribution Width 13.5 % (11.5-14.5); Red Blood Cell (RBC) Count 2.97 mill/uL (4.20-5.40)
[2018-04-15] MEDS: GANCICLOVIR SODIUM IVPB SCH (05:01)
[2018-04-15] MEDS: SODIUM CHLORIDE 0.9% IVPB SCH (05:01)
[2018-04-15] MEDS: Piperacillin/Tazobactam 3.375 GM in Sodium Chloride 0.9% 100 ML IVPB SCH ×2 (05:02→11:57)
[2018-04-15 06:17] VITALS: BMI 29.8
[2018-04-15] MEDS ORDERED: Furosemide 40 MG/4 ML VIAL SLOW IVP SCH (08:45)
--- NOTE | 2018-04-15 08:49 | PDOC.PN ---
- Subjective Encounter Start Date: 04/15/18 Encounter Start Time: 08:35 Feeling much better. Still has some pressure in the chest, but improved. - Objective Resuscitation Status: Resuscitation Status FULL:Full Resuscitation Vital Signs & Weight: Vital Signs (12 hours) Temp Pulse Ox 04/15/18 08:02 100 04/15/18 07:00 98.2 F 04/15/18 00:00 99.3 F Weight Admit Weight 127 lb 10.362 oz Weight 147 lb 14.883 oz Most Recent Monitor Data Heart Rate from ECG 78 NIBP 118/82 NIBP BP-Mean 93 Respiration from ECG 24 SpO2 100 I&O: 04/14/18 04/15/18 04/16/18 06:59 06:59 06:59 Intake Total 4818 2565 Output Total 2570 6085 135 Balance 2248 -3520 -135 Result Diagrams: 04/15/18 04:16 04/15/18 04:16 Additional Labs: Accuchecks 04/14/18 18:26 POC Glucose 134 H Phys Exam - Physical Examination Constitutional: NAD Up in chair. HEENT: oral pharynx no lesions Neck: no JVD, supple Bibasilar rales. Cardiovascular: RRR, no significant murmur Gastrointestinal: soft, non-tender, no distention, positive bowel sounds Musculoskeletal: no edema Psychiatric: normal affect, A&O x 3 Deviation from normal: Has had some very mild persistent confusion. Dx/Plan (1) Tachypnea Code(s): R06.82 - TACHYPNEA, NOT ELSEWHERE CLASSIFIED Status: Resolved (2) CMV colitis Code(s): A08.39 - OTHER VIRAL ENTERITIS; B25.9 - CYTOMEGALOVIRAL DISEASE, UNSPECIFIED Status: Acute Comment: Gancyclovir, Zosyn. ID, GI following. (3) Sepsis Code(s): A41.9 - SEPSIS, UNSPECIFIED ORGANISM Status: Acute Comment: Off Pressors. Much improved. Secondary to colitis. (4) Hypotension Status: Resolved Comment: Off pressors (5) History of Hodgkin's lymphoma Code(s): Z85.71 - PERSONAL HISTORY OF HODGKIN LYMPHOMA Status: Acute Comment : Embruvica held. (6) Chest pain Code(s): R07.9 - CHEST PAIN, UNSPECIFIED Status: Acute Comment: Not ischemic. Concerning for possible esophagitis (CMV, other viral, candidal). May be related to the pulmonary edema or effusion. Does not appear to be secondary to the colitis. - Plan * Diuresed pretty well on her own yesterday as her BP improved. Still has some pulmonary edema with basilar rales. Discussed with Pulm. He will give some lasix today. Continue antivirals and antibiotics. If she does well, may be able to transfer to regular room later today or tomorrow.
[2018-04-15] MEDS ORDERED: Potassium Chloride 20 MEQ TAB PO SCH ×2 (09:00→14:00)
[2018-04-15] MEDS: Enoxaparin Sodium 40 MG/0.4 ML SYRINGE SC SCH (09:35)
[2018-04-15] MEDS: Pantoprazole 40 MG VIAL IVP SCH (09:35)
--- NOTE | 2018-04-15 12:45 | PRG ---
DATE OF SERVICE: 04/15/2018 SUBJECTIVE: Ms. Sofi Cadena is feeling better. She sat up in a chair. She denied being short of breath. She says she feels much better than yesterday. OBJECTIVE: VITAL SIGNS: She is afebrile, heart rate 59, blood pressure 100/62, respiratory rate is 14. LUNGS: Remarkable for decreased breath sounds at her bases. HEART: Regular rhythm. ABDOMEN: Soft. EXTREMITIES: No clubbing, cyanosis, or edema. NEUROLOGIC: Nonfocal. Intake and outputs remarkable for spontaneous diuresis of negative 3520. She was given a dose of Lasix and a dose of p.o. potassium this morning. LABORATORY DATA: White count 3, hemoglobin 9.1, platelets 116. Sodium 147, potassium 3, chloride 11 1, bicarbonate 30, BUN 14, creatinine 0.63. IMPRESSION: 1. Colitis? cytomegalovirus induced. She is immunocompromised, on immunotherapy and has a history o f mantle cell lymphoma, felt to be in remission. 2. Mild hyperchloremia secondary to volume resuscitation. 3. Volume overload secondary to volume resuscitation. She is responding to Lasix today. 4. Elevated liver enzymes that are mild. 5. Pancytopenia, we currently follow her CBC. I will continue with her in the ICU for 1 more day an d consider moving her out tomorrow.
--- NOTE | 2018-04-15 14:19 | PRG ---
DATE OF SERVICE: 04/15/2018 GASTROINTESTINAL INPATIENT DAILY PROGRESS NOTE SUBJECTIVE: Ms. Cadena is feeling a lot better today. She is diuresing well. She is off all press ors. She denies any abdominal pain and there has been no diarrhea today. She still has a bit of sor e throat. She is tolerating her full liquid diet, though appetite is not great. PHYSICAL EXAMINATION: VITAL SIGNS: Blood pressure 136/66, pulse 56, 95% oxygen saturation on 2 liters nasal cannula. GENERAL: No acute distress. HEART: Regular rate and rhythm. LUNGS: Clear to auscultation bilaterally. ABDOMEN: Soft, nontender to palpation. EXTREMITIES: 1+ bilateral lower extremity edema. LABORATORY STUDIES: WBC 3.0, hemoglobin 9.1, platelets 116. Sodium 140, potassium 3.0, BUN 14, crea tinine 0.63, glucose 186. CMV DNA PCR is still pending. ASSESSMENT AND PLAN: 1. Cytomegalovirus colitis, recurrent, improving. 2. Sepsis, resolving. The patient continues to do well. Awaiting CMV DNA PCR. I think her diet ca n be advanced as tolerated. Continue current antiviral therapy. Dr. Alvarado is covering for GI this weekend.
[2018-04-15 14:29] LABS: CMV DNA-PCR Test Positive < 200 IU/mL (Negative)
[2018-04-15] MEDS: Famotidine/PF 20 mg/2ml Vial SLOW IVP SCH (16:52)
[2018-04-15 17:24] LABS: Vancomycin, Trough 11.4 ug/mL
--- NOTE | 2018-04-15 18:19 | PRG ---
DATE OF SERVICE: 04/15/2018 SUBJECTIVE: The patient has diuresed very well and a lot of the anasarca has resolved. She is more awake and alert and was able to sit up for a protracted period of time. She denies any headaches. No shortness of breath, no abdominal pain, no diarrhea. OBJECTIVE: VITAL SIGNS: T-max 99.3, currently 98, blood pressure 120/78, pulse 58, respirations 89, O2 sat 98%. GENERAL: Marked improvement in the amount of edema, oriented. HEENT: Ocular movements conjugate. Periorbital edema, resolved. LUNGS: Clear. CARDIOVASCULAR: S1, S2, regular rate. ABDOMEN: Soft and not distended. EXTREMITIES: Moves all extremities equally. LABORATORY DATA: White cell count 3.0, hemoglobin 9.1, platelets 116,000, 65% neutrophils. Chemistry, creatinine 0.63, sodium 147, potassium 3.0. CMV DNA UltraQuant less than 200. Urinary histoplasma antigen less than 0.5. ASSESSMENT AND DISCUSSION: Mantle cell lymphoma, prior history of cytomegalovirus, colitis and sepsis with recrudescence of colitis. The cytomegalovirus was positive, but in the low titer. It is possible that most of the cytomegalovirus activity was restricted to the bowel and we will transition her to oral Valcyte and continue treatment. Remainder of the microbiology studies were negative. She will discontinue the remainder of her antimicrobials. MTDD
[2018-04-16 05:58] LABS: Anion Gap 10 mmol/L (10-20); BUN (Urea Nitrogen) 21 mg/dL (9.8-20.1); Calc. Creatinine Clearance 106 mL/min (70-130); Calcium 8.5 mg/dL (7.8-10.44); Carbon Dioxide 34 mmol/L (22-29); Chloride 106 mmol/L (98-107); Estimated GFR-MDRD Greater than 90; Glucose 204 mg/dL (70-105); Potassium 3.3 mmol/L (3.5-5.1); Sodium 147 mmol/L (136-145)
[2018-04-16 06:58] LABS: Hemoglobin 9.5 g/dL (12.0-16.0); Hypochromia SLIGHT = 6-15 cells (100X) (0-5/hpf); Lymphocytes 36 % (21-51); MDiff Complete? YES; Mean Corpuscular HGB CONC 33.9 g/dL (32.0-36.0); Mean Corpuscular Hemoglobin 30.9 pg (27.0-31.0); Mean Corpuscular Volume 91.3 fL (78.0-98.0); Monocytes 12 % (0-10); Neutrophil 52 % (42-75); PLT Morphology Comment Appears Decreased; Platelet Count 119 thou/uL (130-400); RBC Distribution Width 13.3 % (11.5-14.5); Red Blood Cell (RBC) Count 3.06 mill/uL (4.20-5.40); White Blood Cell (WBC) Count 2.2 thou/uL (4.8-10.8)
[2018-04-16] MEDS: Enoxaparin Sodium 40 MG/0.4 ML SYRINGE SC SCH (09:06)
[2018-04-16] MEDS: Pantoprazole 40 MG VIAL IVP SCH (09:09)
--- NOTE | 2018-04-16 13:44 | EKG ---
Test Reason : SEPSIS Blood Pressure : / mmHG Vent. Rate : 148 BPM Atrial Rate : 148 BPM P-R Int : 118 ms QRS Dur : 078 ms QT Int : 282 ms P-R-T Axes : 040 066 017 degrees QTc Int : 442 ms Sinus tachycardia Left atrial enlargement Borderline ECG Confirmed by ELI GUTIERREZ, VARSHA Grewal ([id number]), social media editor JUAN THORNTON ([id number]) on 04/16/2018 1:44:25 PM Referred By: Confirmed By:VARSHA BENITEZ MD
--- NOTE | 2018-04-16 16:58 | PDOC.PN ---
- Subjective Encounter Start Date: 04/16/18 Encounter Start Time: 16:57 Doing very well. Wants to get up and move around. Still has mild chest discomfort with deep breathing. - Objective Resuscitation Status: Resuscitation Status FULL:Full Resuscitation Vital Signs & Weight: Vital Signs (12 hours) Temp Pulse Resp BP Pulse Ox 04/16/18 11:57 97.8 F 75 19 131/81 91 L 04/16/18 08:57 98.2 F 85 19 114/62 93 L Weight Admit Weight 127 lb 10.362 oz Weight 137 lb 1.6 oz Most Recent Monitor Data Heart Rate from ECG 58 NIBP 121/78 NIBP BP-Mean 89 Respiration from ECG 18 SpO2 98 I&O: 04/15/18 04/16/18 04/17/18 06:59 06:59 06:59 Intake Total 2565 871 Output Total 6087 3765 Balance -7285 -2380 Result Diagrams: 04/16/18 05:03 04/16/18 05:02 Phys Exam - Physical Examination Constitutional: NAD Neck: no JVD, supple Respiratory: no wheezing, no rales, no rhonchi, clear to auscultation bilateral Cardiovascular: RRR, no significant murmur Gastrointestinal: soft, non-tender, no distention, positive bowel sounds Musculoskeletal: no edema Psychiatric: normal affect, A&O x 3 Dx/Plan (1) Tachypnea Code(s): R06.82 - TACHYPNEA, NOT ELSEWHERE CLASSIFIED Status: Resolved (2) CMV colitis Code(s): A08.39 - OTHER VIRAL ENTERITIS; B25.9 - CYTOMEGALOVIRAL DISEASE, UNSPECIFIED Status: Acute Comment: Gancyclovir, Zosyn. ID, GI following. (3) Sepsis Code(s): A41.9 - SEPSIS, UNSPECIFIED ORGANISM Status: Acute Comment: Off Pressors. Much improved. Secondary to colitis. (4) Hypotension Status: Resolved Comment: Off pressors (5) History of Hodgkin's lymphoma Code(s): Z85.71 - PERSONAL HISTORY OF HODGKIN LYMPHOMA Status: Acute Comment : Embruvica held. (6) Chest pain Code(s): R07.9 - CHEST PAIN, UNSPECIFIED Status: Acute Comment: Not ischemic. Concerning for possible esophagitis (CMV, other viral, candidal). May be related to the pulmonary edema or effusion. Does not appear to be secondary to the colitis. - Plan * Will change all IV's to po's. * RAFAELA Richards * Ambulate.
--- NOTE | 2018-04-16 17:49 | PRG ---
DATE OF SERVICE: 04/16/2018 SUBJECTIVE: She is better this morning. She was transferred out of the ICU. Sats are 91 on 1 liter , respirations 19, temperature 97, blood pressure 113/81. She denies nausea, vomiting, or diarrhea. OBJECTIVE: CHEST: Decreased breath sounds, no wheezing. CARDIAC: Normal S1, S2, no gallops. ABDOMEN: Soft. LABORATORY DATA: White count 2000, H and H is 9 and 28, platelet count is low 19. Electrolytes are normal. IMPRESSION: History of mantle cell lymphoma, CMV colitis, sepsis, severe deconditioning. PLAN: Antibiotics as per Infectious Disease. She has steroids, valganciclovir 900 twice a day. Continue PT, nutrition.
[2018-04-17 08:26] LABS: Hemoglobin 10.1 g/dL (12.0-16.0); Mean Corpuscular Hemoglobin 30.2 pg (27.0-31.0); Mean Corpuscular Volume 91.5 fL (78.0-98.0); Mean Platelet Volume 9.1 fL (7.4-10.4); Platelet Count 141 thou/uL (130-400); Red Blood Cell (RBC) Count 3.36 mill/uL (4.20-5.40); White Blood Cell (WBC) Count 2.1 thou/uL (4.8-10.8)
[2018-04-17 08:28] LABS: Anion Gap 11 mmol/L (10-20); BUN (Urea Nitrogen) 18 mg/dL (9.8-20.1); Calc. Creatinine Clearance 101 mL/min (70-130); Calcium 8.9 mg/dL (7.8-10.44); Carbon Dioxide 34 mmol/L (22-29); Chloride 104 mmol/L (98-107); Estimated GFR-MDRD Greater than 90; Glucose 158 mg/dL (70-105); Sodium 146 mmol/L (136-145)
[2018-04-17 08:37] LABS: Potassium 2.9 mmol/L (3.5-5.1)
[2018-04-17] MEDS: predniSONE 20 MG TAB PO SCH (08:47)
[2018-04-17] MEDS: Enoxaparin Sodium 40 MG/0.4 ML SYRINGE SC SCH (08:48)
[2018-04-17] MEDS ORDERED: Potassium Chloride 20 MEQ TAB PO SCH ×2 (10:45→16:00)
[2018-04-17 11:25] LABS: Hypochromia SLIGHT = 6-15 cells (100X) (0-5/hpf); Lymphocytes 42 % (21-51); MDiff Complete? YES; Monocytes 8 % (0-10); Neutrophil 50 % (42-75); PLT Morphology Comment Appears Decreased
--- NOTE | 2018-04-17 16:01 | PDOC.PN ---
- Subjective Encounter Start Date: 04/17/18 Encounter Start Time: 15:57 Feels very well. No complaints. She was able to ambulate without difficulty. She is continuing to void well. Does not feel like she needs the oxygen. - Objective Resuscitation Status: Resuscitation Status FULL:Full Resuscitation Vital Signs & Weight: Vital Signs (12 hours) Temp Pulse Resp BP Pulse Ox 04/17/18 12:00 98.7 F 84 20 153/69 H 95 04/17/18 08:45 97.9 F 67 18 156/77 H 94 L 04/17/18 04:15 98 F 50 L 20 139/79 96 Weight Admit Weight 127 lb 10.362 oz Weight 133 lb 3.2 oz Most Recent Monitor Data Heart Rate from ECG 58 NIBP 121/78 NIBP BP-Mean 89 Respiration from ECG 18 SpO2 98 I&O: 04/16/18 04/17/18 04/18/18 06:59 06:59 06:59 Intake Total 871 980 Output Total 2547 9622 Balance -6449 -2173 Result Diagrams: 04/17/18 07:53 04/17/18 07:53 Phys Exam - Physical Examination Constitutional: NAD HEENT: oral pharynx no lesions Neck: no JVD, supple Respiratory: no wheezing, no rales, no rhonchi, clear to auscultation bilateral Cardiovascular: RRR, no significant murmur Gastrointestinal: soft, non-tender, no distention Musculoskeletal: no edema Neurological: non-focal Psychiatric: normal affect, A&O x 3 Dx/Plan (1) Tachypnea Code(s): R06.82 - TACHYPNEA, NOT ELSEWHERE CLASSIFIED Status: Resolved (2) CMV colitis Code(s): A08.39 - OTHER VIRAL ENTERITIS; B25.9 - CYTOMEGALOVIRAL DISEASE, UNSPECIFIED Status: Acute Comment: Gancyclovir. ID, GI following. On oral meds. Will need to clarify durtion of outpatient therapy. (3) Sepsis Code(s): A41.9 - SEPSIS, UNSPECIFIED ORGANISM Status: Resolved (4) Hypotension Status: Resolved Comment: Off pressors (5) History of Hodgkin's lymphoma Code(s): Z85.71 - PERSONAL HISTORY OF HODGKIN LYMPHOMA Status: Chronic Comment: Embruvica held. Will keep her off of this until she follows up with Dr. Cleaning. She may not restart it at all considering she was feeling so poorly before. (6) Chest pain Code(s): R07.9 - CHEST PAIN, UNSPECIFIED Status: Resolved (7) Hypokalemia Code(s): E87.6 - HYPOKALEMIA Status: Acute Comment: Still spontaneously diuresing. Will give additional dose now and recheck in am. - Plan * Hope to discharge tomorrow. Will check her sats on RA and with walking. Need to clarify the duration of treatment for the Valcyte.
--- NOTE | 2018-04-18 02:10 | PRG ---
DATE OF SERVICE: 04/17/2018 SUBJECTIVE: This morning, she is doing better and less abdominal pain. better. She is walking. OBJECTIVE: VITAL SIGNS: Her sats are better, 94 on 2 liters, respiration rate 18, temperature 97, pulse 67, blo od pressure 156/77. CHEST: No wheezing, crackles. CARDIAC: Normal S1, S2. ABDOMEN: Abdomen is soft. LABORATORY DATA: White count 2000, H and H 10 and 30, and platelet count 41. Electrolytes are noemy l. IMPRESSION: Mantle cell lymphoma with presumed colitis secondary to cytomegalovirus. PLAN: She is on ganciclovir for her CMV, continue supportive care, prednisone. We will follow.
[2018-04-18 05:47] LABS: Anion Gap 10 mmol/L (10-20); BUN (Urea Nitrogen) 18 mg/dL (9.8-20.1); Calc. Creatinine Clearance 94 mL/min (70-130); Calcium 8.8 mg/dL (7.8-10.44); Carbon Dioxide 31 mmol/L (22-29); Chloride 106 mmol/L (98-107); Estimated GFR-MDRD Greater than 90; Glucose 117 mg/dL (70-105); Potassium 3.2 mmol/L (3.5-5.1); Sodium 144 mmol/L (136-145)
[2018-04-18 06:30] LABS: Band 6 % (5-11); Hemoglobin 10.9 g/dL (12.0-16.0); Hypochromia SLIGHT = 6-15 cells (100X) (0-5/hpf); Lymphocytes 44 % (21-51); MDiff Complete? YES; Mean Corpuscular HGB CONC 33.9 g/dL (32.0-36.0); Mean Corpuscular Hemoglobin 30.9 pg (27.0-31.0); Mean Platelet Volume 8.9 fL (7.4-10.4); Monocytes 2 % (0-10); Neutrophil 48 % (42-75); PLT Morphology Comment Appears Adequate; Platelet Count 164 thou/uL (130-400); RBC Distribution Width 12.9 % (11.5-14.5); Red Blood Cell (RBC) Count 3.53 mill/uL (4.20-5.40); White Blood Cell (WBC) Count 2.4 thou/uL (4.8-10.8)
[2018-04-18] MEDS ORDERED: Potassium Chloride 20 MEQ TAB PO SCH (07:30)
[2018-04-18] MEDS: predniSONE 20 MG TAB PO SCH (08:34)
[2018-04-18] MEDS: Enoxaparin Sodium 40 MG/0.4 ML SYRINGE SC SCH (08:34)
[2018-04-18 14:21] VITALS: BP 131/77; TEMP 98.4
--- NOTE | 2018-04-18 15:30 | PRG ---
DATE OF SERVICE: 04/18/2018 SUBJECTIVE: Ms. Cadena is feeling much better. She has been transferred from the unit. She denies any vomiting. No chest pain, no abdominal pain, no diarrhea. OBJECTIVE: VITAL SIGNS: Normal. GENERAL: The edema has completely resolved. HEENT: Ocular movements conjugate. LUNGS: Clear. HEART: S1 and S2. ABDOMEN: Soft, nontender. LABORATORY DATA: White cell count is 2.4, hemoglobin 10.9, platelets 164. Sodium 144, creatinine 0. 62. Cryptococcus antigen was negative. The CMV DNA PCR was positive, but less than 200. Histoplasm a antigen less than 0.5. ASSESSMENT AND DISCUSSION: Mantle cell lymphoma, prior history of CMV, colitis, sepsis, and recrudes cence of colitis with improvement. The patient would continue on Valcyte 900 mg daily, and I will fo llow her in 2 to 3 weeks in the outpatient setting. Repeat assays that time, since she had a low vir emia. We will have to guide ourselves through the clinical presentation.
== END 2018-04-18 14:39 | disposition home or self-care (01) | DRG 871 ==
LOC: ERS 04:03 → ERHOLD 06:03 → CCU 08:37 → 2NO 04-15 15:45
PROVIDERS: ADMIT Hospitalist; ATTEND Hospitalist
PROC: 02HV33Z Insertion of Infusion Device into Superior Vena Cava, Percutaneous Approach (ICD-10-PCS; principal; 2018-04-14)
DX: A41.9 Sepsis, unspecified organism (principal); R65.21 Severe sepsis with septic shock; B25.9 Cytomegaloviral disease, unspecified; D61.818 Other pancytopenia; J90 Pleural effusion, not elsewhere classified; A08.39 Other viral enteritis; I24.8 Other forms of acute ischemic heart disease; E03.9 Hypothyroidism, unspecified; E87.6 Hypokalemia; E87.70 Fluid overload, unspecified; E87.8 Other disorders of electrolyte and fluid balance, not elsewhere classified; Z85.72 Personal history of non-Hodgkin lymphomas; Z79.899 Other long term (current) drug therapy
CPT/HCPCS: 36415; 36416; 36556; 51701; 70450; 71045; 71260; 74177; 80048; 80053; 80202; 81003; 82553; 83605; 83630; 84484; 85025; 87040; 87045; 87046; 87086; 87324; 87328; 87329; 87385; 87449; 87497; 87899; 93005; 93010; 93306; 94760; 96361; 96365; 96366; 96367; 96375; A4216; A4353; C9113; J1265; J1570; J1650; J1940; J2270; J2405; J2543; J2765; J2920; J3370; J3480; J7050; J7506; J8499; S0028

== ENCOUNTER 2018-04-24 09:44 | Inpatient (IN) | payer BC ==
[2018-04-24 11:25] LABS: ALT (SGPT) 68 U/L (8-55); AST (SGOT) 28 U/L (5-34); Albumin 3.6 g/dL (3.5-5.0); Alkaline Phosphatase 212 U/L (40-150); Anion Gap 14 mmol/L (10-20); BUN (Urea Nitrogen) 11 mg/dL (9.8-20.1); Bilirubin, Total 0.7 mg/dL (0.2-1.2); Calc. Creatinine Clearance 0 mL/min (70-130); Calcium 9.6 mg/dL (7.8-10.44); Carbon Dioxide 28 mmol/L (22-29); Chloride 104 mmol/L (98-107); Estimated GFR-MDRD 90; Globulin 2.7 g/dL (2.4-3.5); Glucose 231 mg/dL (70-105); Hemoglobin 11.8 g/dL (12.0-16.0); Mean Corpuscular HGB CONC 33.2 g/dL (32.0-36.0); Mean Corpuscular Hemoglobin 30.5 pg (27.0-31.0); Mean Corpuscular Volume 92.1 fL (78.0-98.0); Mean Platelet Volume 7.8 fL (7.4-10.4); Platelet Count 209 thou/uL (130-400); Potassium 3.9 mmol/L (3.5-5.1); Protein, Total 6.3 g/dL (6.0-8.3); RBC Distribution Width 13.8 % (11.5-14.5); Red Blood Cell (RBC) Count 3.88 mill/uL (4.20-5.40); Sodium 142 mmol/L (136-145); White Blood Cell (WBC) Count 1.2 thou/uL (4.8-10.8)
[2018-04-24 11:26] LABS: Band 1 % (5-11); Eosinophils 8 % (0-10); Lymphocytes 66 % (21-51); MDiff Complete? YES; Monocytes 9 % (0-10); Neutrophil 15 % (42-75)
[2018-04-24] MEDS ORDERED: ISOVUE-370 76%-LOCM 1 ML ONE (12:49)
--- NOTE | 2018-04-24 13:52 | CT ---
CT NECK WITH CONTRAST: Date: 04/24/18 HISTORY: 53-year-old female with neck pain, erythema, and swelling. TECHNIQUE: IV contrast: 100 mL Isovue-[id number]. COMPARISON: None. FINDINGS: A short segment of the inferior aspect of the left sternocleidomastoid muscle is focally mildly enlar ged, several centimeters superior to the clavicle. There is an obliquely transversely oriented linear lucency, lined by thin rim of enhancement, across the mid portion of this segment of the sternocleid omastoid muscle. Superficial to this expanded segment, there is fat stranding in the subcutaneous fat representing edema, and adjacent skin thickening. There is no focal organized fluid collection to in dicate any abscess. There is no cervical lymphadenopathy. The parapharyngeal, perivertebral, retropharyngeal, submandibul ar, sublingual, parotid, carotid, posterior cervical, pharyngeal mucosal, and visceral, spaces, are n ormal. The right maxillary sinus is small in volume with thickened osseous jacob. The same is true to a lesser degree of left maxillary sinus. No fluid or high grade mucosal thickening of the maxillary, ethmoid, and sphenoid sinuses. Middle ear cavities and mastoid antra are clear. No destructive osseo us lesion. Normal larynx. No thyromegaly. 2 x 1 x 1.5 cm solid thyroid nodule protruding inferiorly f rom lower pole of left lobe of the thyroid gland. No carotid stenosis. IMPRESSION: 1. Focal enlargement of supraclavicular portion of left sternocleidomastoid muscle; with overlying e amna and skin thickening. Possible etiologies include cellulitis and underlying myositis, versus trau ma. 2. No abscess. 3. Incidental finding of left lobe lower pole thyroid nodule. POS: [facility]
[2018-04-24] MEDS ORDERED: Acetaminophen 325 MG TAB PO PRN (15:23)
[2018-04-24] MEDS ORDERED: Dextrose 50% Abboject 50 ML SYRINGE SLOW IVP PRN (15:37)
[2018-04-24] MEDS ORDERED: Dextrose 5% in Water 1,000 ML IV PRN (15:37)
[2018-04-24 16:36] VITALS: BMI 23.3
[2018-04-24] MEDS: Clindamycin/D5W 900 MG in Premix Bag 1 BAG IVPB SCH (17:06)
--- NOTE | 2018-04-24 19:39 | HP ---
CHIEF COMPLAINT: Skin infection. HISTORY OF PRESENT ILLNESS: The patient is a 53-year-old female who was recently admitted to the [facility] for CMV colitis and severe sepsis. The patient has a history of mantle cell lymphoma for which she has been treated. She was on some suppressive medication, Imbruvica since 12/2016. The patient managed to do well through the severe sepsis portion after aggressive resuscitation and hypotension. She was seen in consultation by Infectious Disease and it was felt the patient's underlying infecti on was CMV colitis, which she had had in the past. CT scan did confirm colitis. The patient was sta rted on ganciclovir and did well. She was subsequently transferred out to the floor and then dischar ged to home. The patient did have a left neck venous access. During the hospitalization, the patien t was sent home on oral ganciclovir which she has been tolerating well. On Wednesday, 5 days ago, th e patient started experiencing some mild irritation and inflammation at the vascular access site in [facility] left neck base. It continued to get bigger and more inflamed. She presented to her PCP who recom mended cold compresses; however, this failed to resolve the problem, so she ultimately presented in [facility] emergency department today. She has had no associated fevers or chills. REVIEW OF SYSTEMS: A Ten-system review is negative except for those things mentioned in history of p resent illness other than the fact that the patient reports her appetite has not fully recovered from her previous admission. PAST MEDICAL HISTORY: Notable for the above mentioned lymphoma with suppressive therapy, hypothyroid ism and the CMV colitis as above. PAST SURGICAL HISTORY: Cyst removal from her pelvis remotely. This was apparently how the lymphoma diagnosis was originally made. FAMILY HISTORY: Father has hypertension. Mother has diabetes. SOCIAL HISTORY: The patient is a nonsmoker, nondrinker. She is and her would be her surrogate decision maker. CODE STATUS: She is FULL CODE. PHYSICAL EXAMINATION: VITAL SIGNS: Temperature is 118/69, pulse 97, respirations 16, temperature is 99.8, O2 sat 96% on ro om air. GENERAL APPEARANCE: Age appropriate female. She is awake, alert, oriented, pleasant, cooperative. She is in no distress. HEENT: PERRL. No OP lesions. She does have a pterygium on the left eye, which is chronic. NECK: Reveals a 3-cm area that is raised approximately 1.5 cm at the left sternocleidomastoid base w ith some purulent fluid expressed with compression. This area is minimally tender. She has no lymph adenopathy. CARDIOVASCULAR: Regular rate and rhythm. No murmurs, gallops or rubs. LUNGS: Clear to auscultation bilaterally. No wheezes or rales. ABDOMEN: Soft, nontender, nondistended, positive bowel sounds, no masses, no organomegaly. SKIN: Warm, dry with no edema. LABORATORY DATA: White count 1.2, hemoglobin 11.8, platelets 209. She has 15% neutrophils, 1% bands , 66% lymphocytes, 8% eosinophils. Chemistries normal except glucose of 231. AST is 28, ALT 68, alk thor phosphatase 212. A CT scan of the neck reveals some inflammation at the base of the sternoclei domastoid muscle with soft tissue edema, but no evidence of particular abscess. ASSESSMENT AND PLAN: 1. Soft tissue infection of the neck in a prior vascular access site in a patient with neutropenia. Patient has had blood cultures drawn. The purulent material from this infection was also taken for culture. She has been given a dose of vancomycin in the emergency department. I will continue that and add some clindamycin. We will consult Infectious Disease and keep the patient on neutropenic pre cautions. 2. Neutropenia. This is secondary to the ganciclovir. The patient has been taken for the CMV colit is. 3. CMV colitis. The patient is stable from this. She is still in the ganciclovir and is asymptomat ic. 4. Hyperglycemia. This is something that will need to be followed with serial Accu-Cheks. 5. History of mantle cell lymphoma in remission. 6. History of hypothyroidism. We will continue with her usual home medications.
[2018-04-24] MEDS ORDERED: Famotidine 20 MG TAB PO SCH (22:45)
[2018-04-25] MEDS: Clindamycin/D5W 900 MG in Premix Bag 1 BAG IVPB SCH (00:25)
[2018-04-25] MEDS: Vancomycin HCl 1 GM in Premix Bag 1 BAG IVPB SCH ×2 (02:31→17:12)
[2018-04-25 05:03] LABS: Anion Gap 14 mmol/L (10-20); BUN (Urea Nitrogen) 8 mg/dL (9.8-20.1); Calc. Creatinine Clearance 72 mL/min (70-130); Calcium 8.8 mg/dL (7.8-10.44); Carbon Dioxide 26 mmol/L (22-29); Chloride 101 mmol/L (98-107); Estimated GFR-MDRD 82; Glucose 295 mg/dL (70-105); Sodium 137 mmol/L (136-145)
[2018-04-25 05:25] LABS: Mean Corpuscular HGB CONC 33.7 g/dL (32.0-36.0); Mean Corpuscular Hemoglobin 30.8 pg (27.0-31.0); Mean Corpuscular Volume 91.5 fL (78.0-98.0); Platelet Count 216 thou/uL (130-400); RBC Distribution Width 13.8 % (11.5-14.5); Red Blood Cell (RBC) Count 3.58 mill/uL (4.20-5.40)
[2018-04-25 05:26] LABS: Band 3 % (5-11); Eosinophils 10 % (0-10); Lymphocytes 68 % (21-51); MDiff Complete? YES; Monocytes 6 % (0-10); Neutrophil 13 % (42-75)
[2018-04-25] MEDS: HumaLOG 300 UNITS/3 ML VIAL SC PRN ×4 (05:41→20:19)
[2018-04-25] MEDS: Levothyroxine Sodium 75 MCG TAB PO SCH (05:41)
[2018-04-25] MEDS: Famotidine 20 MG TAB PO SCH ×2 (09:17→20:17)
[2018-04-25] MEDS: Piperacillin/Tazobactam 3.375 GM in Sodium Chloride 0.9% 100 ML IVPB SCH ×2 (11:29→17:13)
--- NOTE | 2018-04-25 12:44 | CON ---
DATE OF CONSULTATION: 04/25/2018 REASON FOR CONSULTATION: Left lower anterior neck skin abscess and possible myositis. HISTORY OF PRESENT ILLNESS: This 53-year-old, known to us from prior visits, with a history of mantl e cell lymphoma, in remission, following treatment; prior diagnosis of CMV colitis; admitted with sep sis and colitis on 04/12. She has spent some time in the ICU and was treated with valganciclovir aft er an initial period with ganciclovir. She had been on ibrutinib as well. The assays included a neg ative histoplasma antigen, CMV DNA UltraQuant was positive, but less than 200 units per mL. The Clos tridium difficile antigen and toxin assays were negative. Other stool workup was negative as well. She improved and she did require diuresis and progress of the anasarca, improved. She recovered well and went home on Valcyte or valganciclovir and then, over the past few days, developed inflammatory process, which appears to be superficial along the lower end of the left sternocleidomastoid muscle, skin location. Other than that, she feels pretty well. Denies headaches, no visual symptoms, sore t hroat, odynophagia, dysphagia, no chest pain, no diarrhea, or genitourinary symptoms. No abdominal p ain, again no cramps, no joint symptoms. PAST MEDICAL HISTORY: Mantle cell lymphoma, in remission, after chemo on ibrutinib maintenance thera py. CMV colitis, recent sepsis associated with exacerbation of CMV colitis. PAST SURGICAL HISTORY: Biopsy of the pelvic area cyst, which led to diagnosis of mantle cell lymphom a. FAMILY HISTORY: Type 2 diabetes and hypertension. SOCIAL HISTORY: Never a smoker. . CURRENT MEDICATIONS: Include Tylenol, dextrose, Pepcid, glucagon, insulin, Synthroid, Zosyn, Valcyte , and vancomycin. PHYSICAL EXAMINATION: VITAL SIGNS: T-max 101.4, currently 98.2; blood pressure 114/76; pulse 83; respirations 14; O2 sat 9 6%. SKIN EXAM: Shows the area of nodular erythema, measuring about 1.5 cm in the lower end of the left s ternocleidomastoid skin site with a little bit of seropurulent drainage. No lymphadenopathy. HEENT: Ocular movements conjugate. No periorbital edema. Oral cavity normal. NECK: Supple. LUNGS: With symmetric air entry. No crackles or wheezing. HEART: S1 and S2, regular rate without murmurs. BACK: No back tenderness. No abdominal tenderness. EXTREMITIES: No joint inflammatory activity. Pulses are 1+ in dorsalis pedis. Moves her extremitie s equally. NEUROLOGIC: Cognitive function appears to be intact. LABORATORY DATA: The white cell count is 1.2 and 2.0, hemoglobin 11, MCV 92, platelets 209,000, 15% neutrophils with total neutrophil count less than 200, 66% lymphocytes. Chemistry with a creatinine 0.68, alkaline phosphatase 212, and ALT 68. Culture from the drainage site in the left neck area wit h Pseudomonas, pending susceptibility results. Soft tissue neck CT shows a focal enlargement in the supraclavicular portion of the left sternocleidomastoid muscle with overlying edema and skin thickeni ng. No obvious abscess noticeable. ASSESSMENT: 1. Mantle cell lymphoma, in remission, after chemotherapy on ibrutinib suppression. 2. Cytomegalovirus colitis with improvement after recent admission after exacerbation. 3. Neutropenia, probably secondary to the combination of the treatment for mantle cell lymphoma plus the effects of the valganciclovir or Valcyte. 4. Phlegmon/superficial abscess of the left anterior sternocleidomastoid muscle, skin. 5. Fever. DISCUSSION: The patient is immunosuppressed and this event is probably related to the immunosuppress ion associated with the treatment for mantle cell lymphoma. Pseudomonas aeruginosa has been isolated . We will continue Zosyn and vancomycin. Awaiting on results of blood cultures, and since there is no obvious fluid collection, I would withhold any surgical intervention at this point in time. Withh old Valcyte as well to allow improvement of her white cell count, and once we have final results of c ultures, then hopefully a transition to oral ciprofloxacin to continue treatment. Otherwise, she see l need establishment of IV access for continuation of therapy.
--- NOTE | 2018-04-25 22:04 | PDOC.PN ---
- Subjective Encounter Start Date: 04/25/18 Encounter Start Time: 17:00 - Objective Resuscitation Status: Resuscitation Status FULL:Full Resuscitation MAR Reviewed: Yes Vital Signs & Weight: Vital Signs (12 hours) Temp Pulse Resp BP BP Pulse Ox 04/25/18 19:46 98.6 F 92 20 110/75 96 04/25/18 16:00 98.8 F 91 16 128/82 96 04/25/18 12:00 98.5 F 87 16 111/72 95 Weight Admit Weight 115 lb 8.356 oz Weight 115 lb 8.356 oz I&O: 04/24/18 04/25/18 04/26/18 06:59 06:59 06:59 Intake Total 240 480 Balance 240 480 Result Diagrams: 04/25/18 04:24 04/25/18 04:24 Additional Labs: Accuchecks 04/25/18 04/25/18 04/25/18 19:50 17:14 11:39 POC Glucose 209 H 250 H 203 H 04/25/18 04:32 POC Glucose 254 H Phys Exam - Physical Examination Constitutional: NAD Base of left sternocleidomastoid with 2-3 cm raised nodule with erythema and central drainage. Respiratory: no wheezing, no rales, no rhonchi, clear to auscultation bilateral Cardiovascular: RRR, no significant murmur Gastrointestinal: soft, non-tender, no distention, positive bowel sounds Musculoskeletal: no edema Dx/Plan (1) Soft tissue infection Code(s): L08.9 - LOCAL INFECTION OF THE SKIN AND SUBCUTANEOUS TISSUE, UNSP Status: Acute (2) Pseudomonas aeruginosa infection Code(s): A49.8 - OTHER BACTERIAL INFECTIONS OF UNSPECIFIED SITE Status: Acute (3) Neutropenia Code(s): D70.9 - NEUTROPENIA, UNSPECIFIED Status: Acute - Plan * Doing well. Appreciate ID. Per recs, will keep on IV abx until blood cultures return. If negative, change to PO Cipro. If positive, start PICC and continue IV abx. Hold valgancyclovir to allow recovery of counts.
[2018-04-26] MEDS: Piperacillin/Tazobactam 3.375 GM in Sodium Chloride 0.9% 100 ML IVPB SCH ×4 (00:08→17:44)
[2018-04-26 02:21] LABS: Vancomycin, Trough 20.5 ug/mL
[2018-04-26] MEDS: Vancomycin HCl 750 MG in Sodium Chloride 0.9% 250 ML 250 ML IVPB SCH ×2 (03:09→14:56)
[2018-04-26 05:00] LABS: Hemoglobin A1c 6.9 % (4.0-6.0)
[2018-04-26] MEDS: Levothyroxine Sodium 75 MCG TAB PO SCH (05:31)
[2018-04-26] MEDS: HumaLOG 300 UNITS/3 ML VIAL SC PRN ×2 (05:32→11:53)
[2018-04-26] MEDS: Famotidine 20 MG TAB PO SCH (10:40)
[2018-04-26] MEDS ORDERED: Lidocaine 1% w/Epinephrine 1:100K 20 ML VIAL NERVE BLCK SCH (12:45)
--- NOTE | 2018-04-26 15:05 | PRG ---
DATE OF SERVICE: 04/26/2018 SUBJECTIVE: The patient feels well. She has no complaints whatsoever. She has been up with her mas k on walking the halls diligently. She has continued to be able to express some fluid from the lesio n on her neck. OBJECTIVE: VITAL SIGNS: Temperature is 98.2, pulse 86, O2 saturation 97% on room air, BP 121/75. GENERAL APPEARANCE: Age appropriate female in no distress. She is awake, alert, oriented, pleasant and cooperative. HEENT: No OP lesions. NECK: There is a persistent 2-3 cm lesion at the base of the left sternocleidomastoid, which is less erythematous, but continues to express some milky thick fluid from the posterior portion of the cent ral opening with compression. It is minimally tender. HEART: Regular rate and rhythm. LUNGS: Clear bilaterally with no wheezes or rales. ABDOMEN: Soft, nontender, nondistended. EXTREMITIES: Warm and dry. LABORATORY DATA: Hemoglobin A1c was 6.9. Blood sugars 157-241. IMPRESSION AND PLAN: 1. Left neck superficial abscess at a previous IV site. This is growing Pseudomonas, which alla osborn is pansensitive. The plan is to await blood cultures which should be at 48 hours sometime this e vening. Once the patient's blood culture results remain negative, she can be switched to oral Cipro and treated as an outpatient. If they are positive, she will need a PICC line for further IV treatme nt. Dr. Shaikh is following. We will ask Surgery to see the patient and possibly incise this lesion at neck if that continues to drain. 2. Neutropenia. The patient has been on valganciclovir which has suppressed her white blood cell co unt causing some neutropenia. That has been held and we will recheck her values in the morning antic ipating discharge. 3. History of recent CMV colitis with severe sepsis. The patient remarkably recovered from that and was doing quite well at her baseline at home before developing this superficial neck abscess. The v alganciclovir is being held in light of her neutropenia. 4. Diabetes mellitus. This patient reports that few years ago, she was told by her physician that s he had diabetes. They recommended medications, but she resisted. Ultimately, she did agree to go on Glucophage for a period of time, but ultimately decided she would prefer to treat this with lifestyl e changes. I talked to her about this at length again today. She would still prefer to only use lif estyle modifications in the long run, but she is willing to allow continued Accu-Cheks and insulin wh ile she is in the hospital. 5. History of mantle cell lymphoma. This patient was on Imbruvica previously for suppression that h as been held.
--- NOTE | 2018-04-26 15:44 | PRG ---
DATE OF SERVICE: 04/26/2018 SUBJECTIVE: Feeling well. Still with drainage from that small nodule in the left anterior neck naun on. No headaches, no cough, no abdominal pain or diarrhea. T-max is 98.6. The area in the left ant erior neck with less prominence. The erythema is less prominent as well. There is a center pin hole , which drained small amount of light yellow exudate. This seems to be the area where previous IV ac cess had been placed when she was admitted in the ICU recently. OBJECTIVE: LUNGS: Clear. CARDIOVASCULAR: S1, S2, regular rate. ABDOMEN: Soft and not distended. LABORATORY DATA: White cell count up to 2.0, hemoglobin 11, platelets 216. Total neutrophil count a bout 360. Chemistry was not particularly remarkable. Microbiology with Pseudomonas aeruginosa with broad susceptibility profile. Two sets of blood cultures thus far negative. ASSESSMENT AND DISCUSSION: 1. Mantle cell lymphoma in remission after chemo and ibrutinib supression. Cytomegalovirus colitis with improvement after recent admission on Valcyte. Neutropenia, probably a side effect of Valcyte o n top of abnormal bone marrow from prior chemotherapy for lymphoma. 2. Abscess/phlegmon at a site of a prior IV access when she was recently admitted. This likely caus ed by Pseudomonas aeruginosa with a broad susceptibility profile. A surgical I&D seems to be safe no w to proceed now that she is on coverage for the likely pathogen here. After that, she could probabl y be discharged on oral ciprofloxacin for a couple weeks. Follow up blood cultures to final results.
[2018-04-26 16:24] VITALS: BP 95/62
[2018-04-26 17:19] VITALS: TEMP 98.4
--- NOTE | 2018-04-26 23:15 | OP ---
PREOPERATIVE DIAGNOSIS: Abscess, left side of neck. POSTOPERATIVE DIAGNOSIS: Abscess, left side of neck, mostly phlegmon. PROCEDURE: Incision and drainage of abscess, left side of neck. SURGEON: Dr. Paul Silva. ANESTHESIA: 1% Xylocaine with epinephrine. PROCEDURE IN DETAIL: The patient was at bedside with alcohol prep, local aesthetic, infiltrated to s kin and subcutaneous tissue overlying the small indurated mass left side of neck incision down throug h skin and subcutaneous tissue, small amount of purulent material drained, but is mostly phlegmon. W ound packed open with gauze dressing about a 1.5-2 cm incision made. The patient tolerated the proce dure well. RECOMMENDATIONS: Wash this wound with soap and water in the bath or shower starting tomorrow. Apply antibiotic ointment and Band-Aid. This should heal without problems. Home health nursing is not ne cessary.
--- NOTE | 2018-04-27 03:01 | HP ---
HISTORY OF PRESENT ILLNESS: A 53-year-old female who has an abscess in the left side of her neck fro m a central line. She has recovered from sepsis. Dr. Shaikh has seeing her. She is on antimicrobial s. I have been asked to see regarding incision and drainage of an abscess in the left side of her ne ck. We will plan this at the bedside, exam on the left side of her neck is a 3 cm area of induration , firmness, questionable fluctuance. ASSESSMENT: Infection, left side of the neck. PLAN: Incision and drainage at bedside, she consents.
--- NOTE | 2018-04-27 13:28 | DIS ---
DATE OF ADMISSION: 04/24/2018 DATE OF DISCHARGE: 04/26/2018 DISCHARGE DIAGNOSES: 1. Left neck superficial abscess growing Pseudomonas. 2. Neutropenia secondary to valganciclovir. 3. Recent cytomegalovirus colitis. 4. History of mantle cell lymphoma. 5. Diabetes mellitus. 6. History of hypothyroidism. HISTORY: This patient is a 53-year-old female who had recently been discharged from the hospital aft er suffering a bout of CMV colitis and severe sepsis. The patient was immunosuppressed with Imbruvic a, which she was taking for suppression of mantle cell lymphoma. The patient had survived that she s tated quite well and was able to discharge home. She had an IV in the left IJ while in the hospital. When she got home on the valganciclovir, her immune system was suppressed. She developed some swel ling and inflammation around that IV sites. She subsequently presented to the emergency department. It was noted to have some purulent expression with pressure. This was sent for culture. HOSPITAL COURSE: Patient was admitted to the hospital and started on broad-spectrum IV antibiotic co verage because she was immunosuppressed and had active infection. The patient actually felt quite we ll in general; however, we maintained IV antibiotics because of her immunosuppression. Ultimately, Queenie Shaikh was consulted on case, as she has been following her for the CMV colitis as well. Once the cultures returned Pseudomonas, we waited until 48-hour blood cultures were negative. The Pseudomonas was fortunately fairly pansensitive and Dr. Shaikh was comfortable discharging the patient on oral Ci pro. The lesion itself continued to have some drainage and therefore surgery was consulted and Dr. Lizbet correa did maira the lesion to incised and drainage. Once this was done, the patient was felt to be s table for discharge to home. The patient was also noted to be significantly hyperglycemic during her hospitalization. She had ser ial Accu-Cheks monitored and was placed on a diabetic carbohydrate-consistent diet. I had a long con versation with the patient about this. She reported that in the past, she had been told she was diab etic and had been started on medications; however, she did not want to take the medications and stopp ed them. She wanted to address this with lifestyle modifications. Again, that was her perspective. She was willing to have the sliding scale insulin in the hospital but did not want to pursue treatme nt of this as an outpatient. DISPOSITION: The patient was discharged to home. She is on a diabetic diet. She will be on Cipro 5 00 mg 1 p.o. b.i.d. as well as her Synthroid 75 mcg every day. She will be holding the valganciclovi r until her counts recover and she is to follow up with Dr. Shaikh in 1-2 weeks where he can decide wh at to do with the medication at that time. She should return to the emergency department should she have any problems prior to that time and she can return to work tomorrow.
== END 2018-04-26 18:50 | disposition home or self-care (01) | DRG 603 ==
LOC: ERS 09:44 → T4-B 14:57
PROVIDERS: ADMIT Internal Medicine; ATTEND Internal Medicine
PROC: 0J953ZZ Drainage of Left Neck Subcutaneous Tissue and Fascia, Percutaneous Approach (ICD-10-PCS; principal; 2018-04-24)
DX: L02.11 Cutaneous abscess of neck (principal); L03.221 Cellulitis of neck; C83.10 Mantle cell lymphoma, unspecified site; D70.2 Other drug-induced agranulocytosis; B96.5 Pseudomonas (aeruginosa) (mallei) (pseudomallei) as the cause of diseases classified elsewhere; T37.5X5A Adverse effect of antiviral drugs, initial encounter; E11.9 Type 2 diabetes mellitus without complications; I10 Essential (primary) hypertension; R73.9 Hyperglycemia, unspecified; E03.9 Hypothyroidism, unspecified; M60.9 Myositis, unspecified
CPT/HCPCS: 36415; 36416; 70491; 80048; 80053; 80202; 83036; 85025; 87040; 87070; 87077; 87186; 87205; 96365; J2001; J2543; J3370; J3490; J7050; J8499

== ENCOUNTER 2018-08-10 08:05 | Outpatient (CLI) | payer BC | END 2018-08-10 08:06 | disposition home or self-care (01) | LOC: BICMAMMO 08:05 | PROVIDERS: ATTEND Internal Medicine | DX: Z12.31 Encounter for screening mammogram for malignant neoplasm of breast (principal) | CPT/HCPCS: 77063; 77067 ==

== ENCOUNTER 2020-03-01 07:48 | Outpatient (CLI) | payer BC ==
--- NOTE | 2020-03-01 15:55 | RAD ---
LEFT RIB THREE VIEW 03/01/20 HISTORY: Left sided musculoskeletal pain. COMPARISON: None. FINDINGS: No displaced left sided rib fracture. The visualized lung parenchyma is intact. Lumbar spine unremark able. IMPRESSION: No acute displaced left sided rib fractures. POS: HOME
--- NOTE | 2020-03-01 16:00 | RAD ---
CHEST ONE VIEW: 03/01/20 HISTORY: Left sided musculoskeletal pain. COMPARISON: Radiograph 04/13/18. FINDINGS: Lungs are clear. No pneumothorax or effusion. Cardiac silhouette and mediastinal contours are within normal limits. No acute osseous abnormality. IMPRESSION: No acute intrathoracic abnormality. POS: HOME
== END 2020-03-01 07:49 | disposition home or self-care (01) ==
LOC: BICRAD 07:48
PROVIDERS: ATTEND Internal Medicine
DX: M79.18 Myalgia, other site (principal)
CPT/HCPCS: 71045

== ENCOUNTER 2022-02-13 09:02 | Outpatient (CLI) | payer BC ==
[2022-02-13] MEDS ORDERED: Iopamidol 370 76% 100 ML VIAL ONE (16:02)
== END 2022-02-13 09:03 | disposition home or self-care (01) ==
LOC: CT 09:02
PROVIDERS: ATTEND Internal Medicine Hematology & Oncology
DX: C83.16 Mantle cell lymphoma, intrapelvic lymph nodes (principal); R10.9 Unspecified abdominal pain; K76.0 Fatty (change of) liver, not elsewhere classified
CPT/HCPCS: 74177

== ENCOUNTER 2022-09-15 15:27 | Outpatient (CLI) | payer BC | END 2022-09-15 15:28 | disposition home or self-care (01) | LOC: RAD 15:27 | PROVIDERS: ATTEND Psychiatry & Neurology Psychiatry | DX: J32.9 Chronic sinusitis, unspecified (principal); R05.9 Cough, unspecified; R51.9 Headache, unspecified | CPT/HCPCS: 70220; 71046 ==

== ENCOUNTER 2023-03-31 08:00 | Outpatient (CLI) | payer BC | END 2023-03-31 08:01 | disposition home or self-care (01) | LOC: PET 08:00 | PROVIDERS: ATTEND Internal Medicine Hematology & Oncology | DX: C83.16 Mantle cell lymphoma, intrapelvic lymph nodes (principal); R59.0 Localized enlarged lymph nodes | CPT/HCPCS: 78815; A9552 ==

== ENCOUNTER 2023-04-30 09:45 | Day surgery (SDC) | payer BC ==
[2023-04-29 09:56] VITALS: BMI 26.2
[2023-04-30] MEDS ORDERED: Bupivacaine 0.25% HCL 30 ML VIAL ONE (10:26)
[2023-04-30] MEDS ORDERED: EPINEPHrine 1 MG/ML AMP ONE (10:26)
[2023-04-30] MEDS ORDERED: Famotidine/PF 20 mg/2ml Vial ONE (11:47)
[2023-04-30] MEDS ORDERED: fentaNYL PF 100 MCG/2 ML SYRINGE ONE (11:47)
[2023-04-30] MEDS ORDERED: CEFAZOLIN 2 GM VIAL ONE (11:53)
[2023-04-30] MEDS ORDERED: Sodium Chloride 0.9% 100 ML ONE (11:53)
[2023-04-30] MEDS ORDERED: PROPOFOL 200 MG/20 ML VIAL ONE (12:01)
[2023-04-30] MEDS ORDERED: Dexamethasone 20 MG/5 ML VIAL ONE (12:01)
[2023-04-30] MEDS ORDERED: Lidocaine 1% PF 5 ML VIAL ONE (12:01)
[2023-04-30] MEDS ORDERED: Ketorolac Tromethamine 30 MG/ML VIAL ONE (12:01)
[2023-04-30] MEDS ORDERED: Ondansetron PF 4 MG/2 ML Vial ONE (12:01)
[2023-04-30] MEDS ORDERED: fentaNYL 50 mcg/mL 1 mL Vial ONE (13:09)
== END 2023-04-30 15:07 | disposition home or self-care (01) ==
LOC: SDC 09:45
PROVIDERS: ATTEND Surgery
PROC: 07BJ0ZX Excision of Left Inguinal Lymphatic, Open Approach, Diagnostic (ICD-10-PCS; principal; 2023-04-30)
DX: C83.15 Mantle cell lymphoma, lymph nodes of inguinal region and lower limb (principal); E11.9 Type 2 diabetes mellitus without complications; Z79.84 Long term (current) use of oral hypoglycemic drugs
CPT/HCPCS: 88184; 88307; 88341; 88342; 88360; J0171; J1100; J1885; J2405; J2704; J3010; J3490; S0020; S0028

== ENCOUNTER → 2023-08-31 | Outpatient (CLI) | payer BC | LOC: PET 09:30 | PROVIDERS: ATTEND Internal Medicine Hematology & Oncology | DX: C83.16 Mantle cell lymphoma, intrapelvic lymph nodes (principal); R59.0 Localized enlarged lymph nodes | CPT/HCPCS: 78815; A9552 ==

== ENCOUNTER 2024-09-06 08:00 | Outpatient (CLI) | payer BC | END 2024-09-06 08:01 | disposition home or self-care (01) | LOC: PET 08:00 | PROVIDERS: ATTEND Internal Medicine Hematology & Oncology | DX: C83.16 Mantle cell lymphoma, intrapelvic lymph nodes (principal) | CPT/HCPCS: 78815; A9552 ==